=== PATIENT | male | born 1945 | race Caucasian/White ===

== ENCOUNTER → 2020-12-21 | Outpatient (CLI) | payer MEDICARE ==
--- NOTE | 2020-12-21 14:53 | XR ---
Abdomen HISTORY: [id number],[id number] CONSTIPATION,ABD PAIN Frontal view the abdomen submitted and 2 images Lung bases are clear. There is retained fecal debris throughout the distribution of the colon. No francis dent pneumoperitoneum or bowel obstruction. Calcifications in the pelvis likely represent phleboliths . Degenerative disc changes are noted in the visualized spine. Graph impression: Correlate for fecal stasis.
== END | disposition home or self-care (01) ==
LOC: RADXRYALE 13:44
PROVIDERS: ATTEND Physician Assistant
DX: K59.00 Constipation, unspecified (principal)
CPT/HCPCS: 74018

== ENCOUNTER → 2021-04-02 | Outpatient (CLI) | payer MEDICARE ==
--- NOTE | 2021-04-02 19:41 | P.STRESS ---
- Stress Test Note Stress Test Results/Findings: Exam Performed: EH stress test Exam Date: 04/02/21 Reason for Exam: HTN Height: 5 ft 8 in Weight: 107.3 kg Protocol: PATI Stage: 3 Duration of Exercise: 6:29 Resting Heart Rate: 71 Resting Blood Pressure: 157/82 Maximum Achieved Heart Rate: 153 Maximum Achieved Blood Pressure: 186/71 85% PMHR: 124 100% PMHR: 146 METS: 7.7 Technologist Comment: Stress Test Results/Findings: Baseline heart rate 71 beats a minute, Baseline blood pressure 157/82 mmHg Patient exercised on a Pati protocol for 6-1/2 minutes Peak heart rate 153 beats a minute, peak blood pressure 186/71 mmHg Baseline twelve-lead EKG shows sinus rhythm normal ST segments narrow QRS normal OH interval occasional PACs No ECG evidence for ischemia No arrhythmias with exercise Impression Average exercise capacity without any ECG evidence for ischemia PACs noted at baseline
--- NOTE | 2021-04-02 19:46 | ECHOF ---
Referral Reason:R53.83 Fatigue,E78.2 Mixed hyperlipidemia,I10HTN MEASUREMENTS -------- HEIGHT: 172.7 cm WEIGHT: 107.0 kg BP: 157/74 IVSd: 1.4 cm (0.6 - 1.1) LVIDd: 4.3 cm (3.9 - 5.3) LVPWd: 1.3 cm (0.6 - 1.1) EDV(Teich): 84 ml IVSs: 1.9 cm LVIDs: 2.7 cm LVPWs: 1.7 cm %IVS Thck: 44 % ESV(Teich): 26 ml EF(Teich): 69 % %FS: 38 % SV(Teich): 58 ml LA Diam: 3.4 cm (2.7 - 3.8) RVIDd: 3.5 cm (< 3.3) LALs A4C: 3.9 cm LAAs A4C: 13.8 cm LAESV A-L A4C: 42 ml LAESV MOD A4C: 40 ml LALs A2C: 5.7 cm LAAs A2C: 15.1 cm LAESV A-L A2C: 34 ml LAESV MOD A2C: 31 ml LAESV(A-L): 45 ml LAESV Index (A-L): 20.76 ml/m Ao Diam: 3.4 cm (2.0 - 3.7) AV Cusp: 2.4 cm (1.5 - 2.6) EPSS: 1.2 cm MV E Maverick: 0.65 m/s MV DecT: 327 ms MV Dec Straff[place]: 2.0 m/s MV A Maverick: 0.90 m/s MV E/A Ratio: 0.72 MV PHT: 95 ms AV Vmax: 1.47 m/s AV maxP.69 mmHg MV EF SLOPE: 18.81 mm/s (70 - 150) MV EXCURSION: 8.33 mm (> 18.000) FINDINGS -------- Sinus rhythm. This was a technically adequate study. The left ventricular size is normal. There is moderate concentric left ventricular hypertrophy. O verall left ventricular systolic function is normal with, an EF between 60 - 65 %. The right ventricle is mildly enlarged. Normal LA size by volume 22+/-6 ml/m2. The right atrium is normal in size. Interatrial and interventricular septum intact. The aortic valve is trileaflet, and appears structurally normal. No aortic stenosis or regurgitation. There is trace to mild mitral regurgitation. The tricuspid valve appears structurally normal. Unable to estimate RVSP due to inadequate TR jet s pectral doppler profile. Trace/mild (physiologic) pulmonic regurgitation. The aortic root size is normal. Normal inferior vena cava with normal inspiratory collapse consistent with estimated right atrial pre ssure of 5 mmHg. There is no pericardial effusion. CONCLUSIONS -------- 1. The left ventricular size is normal. 2. There is moderate concentric left ventricular hypertrophy. 3. Overall left ventricular systolic function is normal with, an EF between 60 - 65 %. 4. The right ventricle is mildly enlarged. 5. The aortic valve is trileaflet, and appears structurally normal. No aortic stenosis or regurgitati on. 6. There is trace to mild mitral regurgitation. 7. Trace/mild (physiologic) pulmonic regurgitation. 8. There is no pericardial effusion. [employer] STUDIES PROFESSOR: Rosa Redd RDCS
--- NOTE | 2021-04-04 10:10 | EST ---
Stress Test Results/Findings: Exam Performed: EH stress test Exam Date: 04/02/21 Reason for Exam: HTN Height: 5 ft 8 in Weight: 107.3 kg Protocol: PATI Stage: 3 Duration of Exercise: 6:29 Resting Heart Rate: 71 Resting Blood Pressure: 157/82 Maximum Achieved Heart Rate: 153 Maximum Achieved Blood Pressure: 186/71 85% PMHR: 124 100% PMHR: 146 METS: 7.7 Technologist Comment: Stress Test Results/Findings: Baseline heart rate 71 beats a minute, Baseline blood pressure 157/82 mmHg Patient exercised on a Pati protocol for 6-1/2 minutes Peak heart rate 153 beats a minute, peak blood pressure 186/71 mmHg Baseline twelve-lead EKG shows sinus rhythm normal ST segments narrow QRS normal NV interval occasional PACs No ECG evidence for ischemia No arrhythmias with exercise Impression Average exercise capacity without any ECG evidence for ischemia PACs noted at baseline MTDD
== END | disposition home or self-care (01) ==
LOC: RADECHMAIN 08:00
PROVIDERS: ATTEND Family Medicine
DX: I35.0 Nonrheumatic aortic (valve) stenosis (principal); I37.1 Nonrheumatic pulmonary valve insufficiency; I10 Essential (primary) hypertension
CPT/HCPCS: 93017; 93306

== ENCOUNTER → 2024-09-16 | Outpatient (CLI) | payer MEDICARE ==
[~2024-09-16] MED LIST: REGADENOSON 0.4 MG/5 ML SYRINGE IV PRN
--- NOTE | 2024-09-16 12:58 | NM ---
EXAMINATION TYPE: NM stress lexiscan cardiolite DATE OF EXAM: 09/16/2024 COMPARISON: NONE CLINICAL INDICATION: Male, 79 years old with history of R06.02 SOB I10 HTN E78.2 HYPERLIPIDEMIA; TECHNIQUE: After the intravenous administration of 10.05 mCi Tc 99m Sestamibi - Cardiolite resting S PECT images acquired 48 minutes post injection. The patient received 0.4mg Lexiscan, 25.4 mCi Tc 99m Sestamibi - Stress images obtained [address] injection FINDINGS: Review of stress and rest SPECT images demonstrates fixed perfusion defect along the mid to basal inf erior wall. There is some augmentation of the wall here on gated images. No distinct reversibility is seen. Gated analysis shows normal wall motion with an estimated left ventricular ejection fraction o f 56 %. TID is upper limits of normal at 1.12. IMPRESSION: Prominent diaphragmatic attenuation artifact. No scintigraphic evidence for reversible ischemia. [facility], Workstation: TE, 09/16/2024 12:56 PM
--- NOTE | 2024-09-16 14:43 | CA ---
Lexiscan Nuclear Stress Test Report Name: Michael Del Valle Exam Date: 09/16/2024 09:41 Exam Location: [facility] Ht (in): 68 Wt (lb): 264 BSA: 2.30 Ordering Phys: Garrick Eason DO Referring Phys: Mishel Jovel PAC Technologist: Ze Powers Age: 79 Gender: M : 1945 Procedure CPT: Indications: R06.02 SOB I10 HTN E78.2 HYPERLIPIIDEMIA ICD-10 Codes: Patient History: Medications: Meds past 24 hrs: Pretest Chest Pain: STRESS TEST Lexiscan Protocol Exercise Duration (min:sec): 02:[address] Depressions (mm): Angina Score: Mauro Score: Resting HR (bpm): 65 Peak HR (bpm): 84 Resting BP (mmHg): 124 / 65 Peak BP (mmHg): / 60 MPHR: 143 Target HR: 122 % MPHR: 59 METS: 1.0 Total Dose: Peak Dose: Atropine: Double Product: BP Response: Stress Termination: INFUSION COMPLETE Stress Symptoms: NO SYMPTOMS Stress Summary: ECG ANALYSIS Resting ECG: Stress ECG: CONCLUSIONS Diagnosis shortness of breath on exertion, history of hypertension and dyslipidemia No ECG evidence for ischemia or arrhythmia during Lexiscan infusion Nuclear portion will be reported separately Dr. Jerry Dyson MD (Electronically Signed) Final Date: 16 Sep 2024 14:42
== END | disposition home or self-care (01) ==
LOC: RADNMMAIN 08:04
PROVIDERS: ATTEND Family Medicine
DX: R06.02 Shortness of breath (principal); I10 Essential (primary) hypertension; E78.2 Mixed hyperlipidemia
CPT/HCPCS: 93017; 78452; A9500; J2785

== ENCOUNTER 2024-10-04 04:15 | Inpatient (IN) | payer MEDICARE ==
[2024-10-04 05:14] LABS: Basophils # (A) 0.02 10*3/uL (0.00-0.10); Basophils % (A) 0.1 %; HCT 34.1 % (39.6-50.0); HGB 10.9 g/dL (13.0-17.0); Lymphocytes # (A) 0.62 10*3/uL (0.90-5.00); Lymphocytes % (A) 4.6 %; MCH 23.9 pg (27.0-32.0); MCV 74.8 fL (80.0-97.0); Mean Platelet Volume 10.2 fL (9.5-12.2); Monocytes # (A) 0.31 10*3/uL (0.20-1.00); Monocytes % (A) 2.3 %; Neutrophils # (A) 12.52 10*3/uL (1.80-7.70); Neutrophils % (A) 92.6 %; Platelet Count 214 10*3/uL (140-440); RBC 4.56 10*6/uL (4.40-5.60); RDW 16.1 % (11.5-14.5); WBC 13.52 10*3/uL (4.50-10.00)
[2024-10-04 05:32] LABS: ALT 22 U/L (4-49); AST 28 U/L (17-59); African American GFR (CKD) >90 (>60 ml/min/1.73 sqM); Albumin 3.6 g/dL (3.5-5.0); Alkaline Phosphatase 87 U/L (38-126); Anion Gap 14 mmol/L; Blood Urea Nitrogen 24 mg/dL (9-20); Carbon Dioxide 18 mmol/L (22-30); Chloride 101 mmol/L (98-107); Glucose 172 mg/dL (74-99); Non-African American GFR(CKD) 83 (>60 ml/min/1.73 sqM); Potassium 4.2 mmol/L (3.5-5.1); Sodium 133 mmol/L (137-145); Total Bilirubin 0.5 mg/dL (0.2-1.3); Total Protein 6.4 g/dL (6.3-8.2)
[2024-10-04 05:40] LABS: NT-Pro-B-Type Natriuretic Pept 1960 pg/mL
[2024-10-04] MEDS: HEPARIN SOD,PORK IN 0.45% NACL 25,000 UNIT in 0.45% NACL 1 250ML.BAG IV SCH (05:44)
[2024-10-04 05:45] LABS: Partial Thromboplastin Time 35.5 sec (22.0-30.0); Prothrombin Time 10.6 sec (10.0-12.5)
--- NOTE | 2024-10-04 05:54 | ED ---
General Adult HPI - General Chief complaint: Chest Pain Stated complaint: NSTEMI Time Seen by Provider: 10/04/24 04:20 Source: patient, EMS Mode of arrival: EMS - History of Present Illness Initial comments: Patient is a 79-year-old gentleman PMH COPD presenting today , transferred from [facility], for NSTEMI and COPD exacerbation. Pt initially presented to [facility] for weakness and shortness of breath. Endorsed a cough productive of clear sputum and on arrival to [facility], was noted to be febrile with temp 100.7. Pt Stated he also noted to chest discomfort to the right side of his chest, "like when the muscle is tight" that has since reso lved. Pt is currently chest pain free. Pt currently denies additional complaints. Denies hemoptysis, abdominal pain, nausea, vomiting, diarrhea, lightheadedness, dizziness. - Related Data Home Medications Medication Instructions Recorded Confirmed Lovastatin [Mevacor] 20 mg PO HS 04/01/16 10/04/24 Omeprazole 40 mg PO DAILY 04/01/16 10/04/24 Albuterol Sulfate [Albuterol 2 puff PO RT-QID PRN 10/04/24 10/04/24 Sulfate Hfa] Aspirin 81 mg PO DAILY 10/04/24 10/04/24 Cholecalciferol [Vitamin D3 (25 25 mcg PO HS 10/04/24 10/04/24 Mcg = 1000 Iu)] Clotrimazole/Betameth Cream 1 applic TOPICAL BID 10/04/24 10/04/24 [Lotrisone] Famotidine [Pepcid] 40 mg PO HS 10/04/24 10/04/24 Ibuprofen [Motrin] 600 mg PO TID 10/04/24 10/04/24 Meloxicam [Mobic] 15 mg PO DAILY 10/04/24 10/04/24 Pramipexole [Mirapex] 0.25 mg PO HS 10/04/24 10/04/24 Tamsulosin HCl [Flomax] 0.4 mg PO BID 10/04/24 10/04/24 Umeclidinium Brm/Vilanterol Tr 1 puff INHALATION RT-DAILY 10/04/24 10/04/24 [Anoro Ellipta 62.5-25 Mcg INH] Previous Rx's Medication Instructions Recorded Ferrous Sulfate [Feosol] 325 mg PO BID 30 Days #60 tab 10/07/24 Furosemide [Lasix] 20 mg PO DAILY 30 Days #30 tab 10/07/24 Ipratropium-Albuterol Nebulize 3 ml INHALATION RT-Q2H PRN #90 each 10/07/24 [Duoneb 0.5 mg-3 mg/3 ml Soln] Metoprolol Tartrate [Lopressor] 25 mg PO DAILY 30 Days #30 tab 10/07/24 Sennosides [Senokot] 8.6 mg PO DAILY PRN #30 tablet 10/07/24 Spironolactone [Aldactone] 25 mg PO DAILY 30 Days #30 tab 10/07/24 lisinopriL [Zestril] 20 mg PO BID 30 Days #60 tab 10/07/24 predniSONE 10 mg PO DAILY 16 Days #40 tab 10/07/24 Allergies Allergy/AdvReac Type Severity Reaction Status Date / Time peanut Allergy Anaphylaxis Verified 10/04/24 07:57 morphine AdvReac Severe Sedation Verified 10/04/24 07:57 Review of Systems ROS Statement: Those systems with pertinent positive or pertinent negative responses have been documented in the HPI. ROS Other: All systems not noted in ROS Statement are negative. Past Medical History Past Medical History: COPD, Hyperlipidemia, Hypertension History of Any Multi-Drug Resistant Organisms: None Reported Past Surgical History: Orthopedic Surgery Smoking Status: Former smoker Past Alcohol Use History: None Reported General Exam - General Exam Comments Initial Comments: PE: CONSTITUTIONAL: No apparent distress, well-appearing though nontoxic SKIN: Warm, dry, no jaundice, hives or petechiae EYES: Pupils are equally round, extraocular movements intact without nystagmus, clear conjunctiva, non-icteric sclera HENT: Normocephalic, atraumatic, moist mucus membranes, oropharynx clear without exudates NECK: , Full range of motion, normal appearance PULMONARY: Wheezes in the bilateral lower lung suarez without rhonchi or rales, normal excursion no accessory muscle use or stridor CARDIOVASCULAR: Regular rate, rhythm, normal S1 and S2. No appreciated murmurs, rubs or gallops. Strong radial pulses with intact distal perfusion. No lower extremity edema GASTROINTESTINAL: Soft, active bowel sounds throughout, non-tender, non- distended, no palpable masses, no rebound or guarding. No hepatosplenomegaly MUSCULOSKELETAL: Extremities have no gross deformity, no edema, redness, or swelling. No calf swelling NEUROLOGIC:_a/o x 3, GCS 15, normal mentation and speech. Moves all extremities x 4 without motor or sensory deficit PSYCHIATRIC:_normal mood and affect, thought process is clear and linear Course Vital Signs 10/04/24 10/04/24 10/04/24 04:17 06:44 08:00 Temperature 98.3 F Pulse Rate 86 80 78 Respiratory 20 18 22 Rate Blood Pressure 110/59 97/61 108/68 O2 Sat by Pulse 96 91 L 93 L Oximetry 10/04/24 10/04/24 10/04/24 09:00 10:00 12:07 Temperature 98.0 F Pulse Rate 90 76 78 Respiratory 24 22 Rate Blood Pressure 118/76 105/63 O2 Sat by Pulse 95 93 L 97 Oximetry 10/04/24 10/04/24 10/04/24 12:18 14:00 15:40 Temperature Pulse Rate 82 83 80 Respiratory 22 Rate Blood Pressure 113/73 O2 Sat by Pulse 95 Oximetry 10/04/24 10/04/24 10/04/24 15:48 16:00 19:38 Temperature 98.7 F 98.7 F Pulse Rate 84 81 82 Respiratory 22 18 Rate Blood Pressure 113/59 115/52 O2 Sat by Pulse 95 95 Oximetry 10/04/24 10/04/24 10/04/24 19:58 20:08 21:49 Temperature 98.8 F Pulse Rate 82 85 75 Respiratory 16 Rate Blood Pressure 116/72 O2 Sat by Pulse 98 Oximetry EKG Findings - EKG Comments: EKG Findings:: Sinus rhythm, rate 84 beats minute intervals with acceptable limits, normal axis, no significant ST elevations or depressions, no arrhythmia Medical Decision Making - Medical Decision Making Was pt. sent in by a medical professional or institution (, PA, NEUROSURGICAL PHYSICIAN ASSISTANT, urgent care, hospital, or fpc...) When possible be specific @Yes transferred from [facility] Did you speak to anyone other than the patient for history (EMS, parent, family, police, friend...)? What history was obtained from this source @Yes spoke with physician from transferring facility, states transferring pt due to COPD exacerbation + NSTEMI Did you review nursing and triage notes (agree or disagree)? Why? @ -I reviewed nursing and triage notes Were old charts reviewed (outside hosp., previous admission, EMS record, old EKG, old radiological studies, urgent care reports/EKG's, fpc records)? Report findings @ -Medical records reviewed Chart from transferring facility, patient received a DuoNeb treatment, 1 gram of Rocephin, 60 mg of furosemide, heparin bolus and infusion, 125 mg Solu-Medrol 500 mg azithromycin Patient had presented to [facility] for feeling weak, tired and short of breath, on arrival her temp was 100.7. Differential Diagnosis (chest pain, altered mental status, abdominal pain women, abdominal pain men, vaginal bleeding, weakness, fever, dyspnea, syncope, headache, dizziness, GI bleed, back pain, seizure, CVA, palpatations, mental health, musculoskeletal)? @Differential Dyspnea: Coronary syndrome, arrhythmia, tamponade, asthma, COPD, pulmonary embolism, pneumonia, pneumothorax, pulmonary effusion, anaphylaxis, diabetic ketoacidosis, flailed chest, pulmonary contusion, diaphragmatic rupture, anemia, jonas romuscular, this is not meant to be an all-inclusive list. EKG interpreted by me (3pts min.). @ -As above X-rays interpreted by me (1pt min.). @ -None done CT interpreted by me (1pt min.). @ -None done U/S interpreted by me (1pt. min.). @ -None done What testing was considered but not performed or refused? (CT, X-rays, U/S, labs)? Why? @ -None What meds were considered but not given or refused? Why? @ -None Did you discuss the management of the patient with other professionals (professionals i.e. , PA, NEUROSURGICAL PHYSICIAN ASSISTANT, lab, RT, psych nurse, social worker school, divorce lawyer, teacher, svp chief marketing officer, watch caser)? Give summary @ -No Was smoking cessation discussed for >3mins.? @ -No Was critical care preformed (if so, how long)? Yes 35 minutes Were there social determinants of health that impacted care today? How? (Homelessness, low income, unemployed, alcoholism, drug addiction, transportation, low edu. Level, literacy, decrease access to med. care, retirement, rehab)? @ -No Was there de-escalation of care discussed even if they declined (Discuss DNR or withdrawal of care, Hospice)? @ -No What co-morbidities impacted this encounter? (DM, HTN, Smoking, COPD, CAD, Cancer, CVA, ARF, Chemo, Hep., AIDS, mental health diagnosis, sleep apnea, morbid obesity)? @COPD Was patient admitted / discharged? Hospital course, mention meds given and route, prescriptions, significant lab abnormalities, going to OR and other pertinent info. @Admission- This is a pleasant 79-year-old gentleman presenting transferred f [facility] where he had initially presented for right sided chest pain, shortness of breath. Was noted to have a fever, treated for COPD exacerbation and additionally noted to have an elevated troponin. Started on heparin and transferred here due to NSTEMI. On my assessment patient is well- appearing in no acute distress. Currently denies chest pain. Bilateral wheezes on pulmonary exam. He is currently resting comfortably on 3 L nasal cannula. I did turn O2 off during my discussion with the patient, his pulse ox did not drop below 94% during my evaluation. Ordered additional DuoNeb treatment, heparin, patient will be admitted for cardiology consultation. Pt agreeable w/ POC. Case discussed with Dr. Trent who kindly accepted patient for admission. Undiagnosed new problem with uncertain prognosis? @ -No Drug Therapy requiring intensive monitoring for toxicity (Heparin, Nitro, Insulin, Cardizem)? @ heparin Were any procedures done? @ -No Diagnosis/symptom? @COPD exacerbation, NSTEMI Acute, or Chronic, or Acute on Chronic? @acute Uncomplicated (without systemic symptoms) or Complicated (systemic symptoms)? @ complicated Side effects of treatment? @ -No Exacerbation, Progression, or Severe Exacerbation? yes-exacerbation Poses a threat to life or bodily function? How? (Chest pain, USA, ID, pneumonia, PE, COPD, DKA, ARF, appy, cholecystitis, CVA, Diverticulitis, Homicidal, Suicidal, threat to staff... and all critical care pts) @yes - Lab Data Result diagrams: 10/07/24 06:19 10/07/24 06:19 Lab Results 10/04/24 10/04/24 10/04/24 Range/Units 04:37 04:37 04:37 WBC 13.52 H (4.50-10.00) 10*3/uL RBC 4.56 (4.40-5.60) 10*6/uL Hgb 10.9 L (13.0-17.0) g/dL Hct 34.1 L (39.6-50.0) % MCV 74.8 L (80.0-97.0) fL MCH 23.9 L (27.0-32.0) pg MCHC 32.0 (32.0-37.0) g/dL Plt Count 214 (140-440) 10*3/uL MPV 10.2 (9.5-12.2) fL Immature Gran % (Auto) 0.4 % Neutrophils % 92.6 % Lymphocytes % 4.6 % Monocytes % 2.3 % Eosinophils % 0.0 % Basophils % 0.1 % Immature Gran # 0.05 H (0.00-0.04) 10*3/uL Neutrophils # 12.52 H (1.80-7.70) 10*3/uL Lymphocytes # 0.62 L (0.90-5.00) 10*3/uL Monocytes # 0.31 (0.20-1.00) 10*3/uL Eosinophils # 0.00 L (0.04-0.35) 10*3/uL Basophils # 0.02 (0.00-0.10) 10*3/uL PT 10.6 (10.0-12.5) sec INR 1.0 (<1.2) APTT 35.5 H (22.0-30.0) sec D-Dimer (<0.60) mg/L FEU Sodium 133 L (137-145) mmol/L Potassium 4.2 (3.5-5.1) mmol/L Chloride 101 (98-107) mmol/L Carbon Dioxide 18 L (22-30) mmol/L Anion Gap 14 mmol/L BUN 24 H (9-20) mg/dL Creatinine 0.89 (0.66-1.25) mg/dL Est GFR (CKD-EPI)AfAm >90 (>60 ml/min/1.73 sqM) Est GFR (CKD-EPI)NonAf 83 (>60 ml/min/1.73 sqM) Glucose 172 H (74-99) mg/dL Calcium 9.0 (8.4-10.2) mg/dL Total Bilirubin 0.5 (0.2-1.3) mg/dL AST 28 (17-59) U/L ALT 22 (4-49) U/L Alkaline Phosphatase 87 (38-126) U/L Troponin I (0.000-0.034) ng/mL NT-Pro-B Natriuret Pep 1960 pg/mL Total Protein 6.4 (6.3-8.2) g/dL Albumin 3.6 (3.5-5.0) g/dL 10/04/24 10/04/24 Range/Units 04:37 04:37 WBC (4.50-10.00) 10*3/uL RBC (4.40-5.60) 10*6/uL Hgb (13.0-17.0) g/dL Hct (39.6-50.0) % MCV (80.0-97.0) fL MCH (27.0-32.0) pg MCHC (32.0-37.0) g/dL Plt Count (140-440) 10*3/uL MPV (9.5-12.2) fL Immature Gran % (Auto) % Neutrophils % % Lymphocytes % % Monocytes % % Eosinophils % % Basophils % % Immature Gran # (0.00-0.04) 10*3/uL Neutrophils # (1.80-7.70) 10*3/uL Lymphocytes # (0.90-5.00) 10*3/uL Monocytes # (0.20-1.00) 10*3/uL Eosinophils # (0.04-0.35) 10*3/uL Basophils # (0.00-0.10) 10*3/uL PT (10.0-12.5) sec INR (<1.2) APTT (22.0-30.0) sec D-Dimer 1.40 H (<0.60) mg/L FEU Sodium (137-145) mmol/L Potassium (3.5-5.1) mmol/L Chloride (98-107) mmol/L Carbon Dioxide (22-30) mmol/L Anion Gap mmol/L BUN (9-20) mg/dL Creatinine (0.66-1.25) mg/dL Est GFR (CKD-EPI)AfAm (>60 ml/min/1.73 sqM) Est GFR (CKD-EPI)NonAf (>60 ml/min/1.73 sqM) Glucose (74-99) mg/dL Calcium (8.4-10.2) mg/dL Total Bilirubin (0.2-1.3) mg/dL AST (17-59) U/L ALT (4-49) U/L Alkaline Phosphatase (38-126) U/L Troponin I 0.208 H* (0.000-0.034) ng/mL NT-Pro-B Natriuret Pep pg/mL Total Protein (6.3-8.2) g/dL Albumin (3.5-5.0) g/dL Disposition Clinical Impression: Acute non-ST elevation myocardial infarction (NSTEMI), COPD exacerbation Disposition: ADMITTED IP TO THIS HOSP Condition: Stable
[2024-10-04] MEDS ORDERED: NALOXONE 0.4 MG/ML 1 ML VIAL IVP PRN (06:14)
[2024-10-04] MEDS ORDERED: IPRATROPIUM-ALBUTEROL 3 ML NEB INHALATION PRN (06:14)
[2024-10-04] MEDS ORDERED: ACETAMINOPHEN TAB 325 MG TAB PO PRN (06:14)
[2024-10-04] MEDS ORDERED: NITROGLYCERIN SL TABS 0.4 MG TAB SUBLINGUAL PRN ×2 (06:16→08:38)
[2024-10-04] MEDS ORDERED: HEPARIN SODIUM,PORCINE (1 ML) 2,500 UNIT in SODIUM CHLORIDE 0.9% 250 ML IRRIGATION PRN (07:00)
[2024-10-04] MEDS ORDERED: HEPARIN SODIUM,PORCINE 10,000 UNIT in SODIUM CHLORIDE 0.9% 1,000 ML IRRIGATION PRN (07:00)
[2024-10-04] MEDS ORDERED: ALPRAZolam 0.25 MG TAB PO PRN (08:38)
[2024-10-04] MEDS: SODIUM CHLORIDE 0.9% 1,000 ML in EMPTY BAG 1 BAG IV SCH (09:29)
[2024-10-04] MEDS: AZITHROMYCIN 500 MG TAB PO SCH (09:31)
[2024-10-04] MEDS: predniSONE 20 MG TAB PO SCH (09:32)
[2024-10-04] MEDS: ATORVASTATIN 40 MG TAB PO SCH (09:32)
[2024-10-04] MEDS: ASPIRIN 325 MG TAB PO STA (09:32)
[2024-10-04] MEDS: ATORVASTATIN 80 MG TAB PO STA (09:32)
[2024-10-04] MEDS ORDERED: ALBUTEROL NEBULIZED 2.5 MG/3 ML INHALATION PRN (10:01)
--- NOTE | 2024-10-04 10:07 | XR ---
EXAMINATION TYPE: XR chest 2V DATE OF EXAM: 10/04/2024 10:00 AM COMPARISON: None. CLINICAL INDICATION: Male, 79 years old with history of sob, TECHNIQUE: XR chest 2V view(s) obtained. FINDINGS: The heart size is normal. The pulmonary vasculature is somewhat prominent. Focal consolidation is not identified.. IMPRESSION: 1. Clinical consideration for volume overload. [facility], , 10/04/2024 10:04 AM
[2024-10-04] MEDS: FUROSEMIDE 10 MG/ML 4 ML VIAL IV STA (10:40)
[2024-10-04 10:53] LABS: Glucose,Whole Blood 198 mg/dL (70-110)
--- NOTE | 2024-10-04 11:00 | P.CRDCN ---
History of Present Illness History of present illness: HISTORY OF PRESENT ILLNESS: This is a 79-year-old male with a past medical history significant for COPD, hypertension, hyperlipidemia, and obesity. 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 We have been asked to see the patient in consultation for elevated troponins. Patient examined at the bedside. Patient initially presented to [facility] with a chief complaint of shortness of breath. Patient was found to have elevated troponins and was transferred to [facility] for further evaluation. The patient denies having any chest pain or pressure. He reports improvement in his shortness of breath. He remains on IV heparin. DIAGNOSTICS: - EKG reveals sinus mechanism with no signs of acute ischemia. - Chest xray clinical consideration for volume overload. - Laboratory data: WBC 13.52. Hemoglobin 10.9. Platelet count 214. D-dimer 1.40. Sodium 133. Potassium 4.2. BUN 24. Creatinine 0.89. Troponin 0.208. 0.196. proBNP 1960. - Current home cardiac medications include lisinopril 40 mg daily, aspirin 81 mg daily, amlodipine 5 mg at night, lovastatin 20 mg at night. - Most recent echocardiogram obtained in March 2021 revealing ejection fraction 60 to 65%, trace to mild MR, moderate concentric LVH - Patient underwent Lexiscan stress test in August 2024 which was negative for ischemia - Cardiac catheterization history: Patient denies REVIEW OF SYSTEMS: At the time of my exam: CONSTITUTIONAL: Denies fever or chills. HEENT: Denies blurred vision, vision changes, or eye pain. Denies hemoptysis CARDIOVASCULAR: Denies chest pain. Denies orthopnea. Denies PND. Denies palpitations RESPIRATORY: Denies shortness of breath. GASTROINTESTINAL: Denies abdominal pain. Denies nausea or vomiting. HEMATOLOGIC: Denies bleeding disorders. GENITOURINARY: Denies any blood in urine. SKIN: Denies pruitis. Denies rash. PHYSICAL EXAM: VITAL SIGNS: Reviewed. GENERAL: Well-developed in no acute distress. HEENT: Head is normocephalic. Pupils are equal, round. Sclerae anicteric. Mucous membranes of the mouth are moist. Neck supple. No JVD or thyromegaly LUNGS: Respirations even and unlabored. Lungs with decreased air change bilaterally HEART: Regular rate and rhythm. S1 and S2 heard. ABDOMEN: Soft. Nondistended. Nontender. EXTREMITIES: Normal range of motion. No clubbing or cyanosis. Peripheral pulses intact. No lower extremity edema NEUROLOGIC: Awake and alert. Oriented x 3. ASSESSMENT: Shortness of breath NSTEMI Acute COPD exacerbation Hypertension Hyperlipidemia Morbid obesity: BMI 40.3 Former nicotine dependence PLAN: Obtain 2D echo to assess cardiac structure and function Continue IV heparin Resume home cardiac medications Check hemoglobin A1c and lipid panel Patient to undergo cardiac catheterization today with Dr. Bhardwaj Further recommendations pending patient course Nurse practitioner note has been reviewed by physician. Signing provider agrees with the documented findings, assessment, and plan of care documented by CHANGE [employer]OTH ATTENDANT as a scribe. Past Medical History Past Medical History: COPD, Hyperlipidemia, Hypertension History of Any Multi-Drug Resistant Organisms: None Reported Past Surgical History: Orthopedic Surgery Smoking Status: Former smoker Past Alcohol Use History: None Reported Medications and Allergies Home Medications Medication Instructions Recorded Confirmed Type Lovastatin [Mevacor] 20 mg PO HS 04/01/16 10/04/24 History Omeprazole 40 mg PO DAILY 04/01/16 10/04/24 History Albuterol Sulfate [Albuterol 2 puff PO RT-QID PRN 10/04/24 10/04/24 History Sulfate Hfa] Aspirin 81 mg PO DAILY 10/04/24 10/04/24 History Chlorhexidine Gluconate [Peridex] 15 ml PO BID 10/04/24 10/04/24 History Cholecalciferol [Vitamin D3 (25 25 mcg PO HS 10/04/24 10/04/24 History Mcg = 1000 Iu)] Clotrimazole/Betameth Cream 1 applic TOPICAL BID 10/04/24 10/04/24 History [Lotrisone] Famotidine [Pepcid] 40 mg PO HS 10/04/24 10/04/24 History Ibuprofen [Motrin] 600 mg PO TID 10/04/24 10/04/24 History Meloxicam [Mobic] 15 mg PO DAILY 10/04/24 10/04/24 History Pramipexole [Mirapex] 0.25 mg PO HS 10/04/24 10/04/24 History Tamsulosin HCl [Flomax] 0.4 mg PO BID 10/04/24 10/04/24 History Umeclidinium Brm/Vilanterol Tr 1 puff INHALATION RT-DAILY 10/04/24 10/04/24 History [Anoro Ellipta 62.5-25 Mcg INH] amLODIPine [Norvasc] 5 mg PO HS 10/04/24 10/04/24 History lisinopriL [Lisinopril] 40 mg PO DAILY 10/04/24 10/04/24 History Allergies Allergy/AdvReac Type Severity Reaction Status Date / Time peanut Allergy Anaphylaxis Verified 10/04/24 07:57 morphine AdvReac Severe Sedation Verified 10/04/24 07:57 Physical Exam Vitals: Vital Signs Temp Pulse Resp BP Pulse Ox 10/04/24 06:44 80 18 97/61 91 L 10/04/24 04:17 98.3 F 86 20 110/59 96 Intake and Output 10/03/24 10/04/24 10/04/24 22:59 06:59 14:59 Other: Weight 120.202 kg Results 10/04/24 04:37 10/04/24 04:37 Cardiac Enzymes 10/04/24 10/04/24 10/04/24 Range/Units 04:37 04:37 07:18 AST 28 (17-59) U/L Troponin I 0.208 H* 0.196 H* (0.000-0.034) ng/mL Coagulation 10/04/24 Range/Units 04:37 PT 10.6 (10.0-12.5) sec APTT 35.5 H (22.0-30.0) sec CBC 10/04/24 Range/Units 04:37 WBC 13.52 H (4.50-10.00) 10*3/uL RBC 4.56 (4.40-5.60) 10*6/uL Hgb 10.9 L (13.0-17.0) g/dL Hct 34.1 L (39.6-50.0) % Plt Count 214 (140-440) 10*3/uL Comprehensive Metabolic Panel 10/04/24 Range/Units 04:37 Sodium 133 L (137-145) mmol/L Potassium 4.2 (3.5-5.1) mmol/L Chloride 101 (98-107) mmol/L Carbon Dioxide 18 L (22-30) mmol/L BUN 24 H (9-20) mg/dL Creatinine 0.89 (0.66-1.25) mg/dL Glucose 172 H (74-99) mg/dL Calcium 9.0 (8.4-10.2) mg/dL AST 28 (17-59) U/L ALT 22 (4-49) U/L Alkaline Phosphatase 87 (38-126) U/L Total Protein 6.4 (6.3-8.2) g/dL Albumin 3.6 (3.5-5.0) g/dL Current Medications Generic Name Dose Route Start Last Admin Trade Name Freq PRN Reason Stop Dose Admin Acetaminophen 650 mg 10/04/24 06:14 Acetaminophen Tab 325 Mg Tab PO Q6HR PRN Mild Pain or Fever > 100.5 Albuterol Sulfate 2.5 mg 10/04/24 10:01 Albuterol Nebulized 2.5 Mg/3 Ml INHALATION RT-QID PRN Shortness Of Breath Albuterol/Ipratropium 3 ml 10/04/24 08:00 Ipratropium-Albuterol 3 Ml Neb INHALATION RT-QID EMILY Albuterol/Ipratropium 3 ml 10/04/24 06:14 Ipratropium-Albuterol 3 Ml Neb INHALATION RT-Q2H PRN Shortness Of Breath Or Wheezing Alprazolam 0.25 mg 10/04/24 08:38 Alprazolam 0.25 Mg Tab PO Q6HR PRN Mild Anxiety Alprazolam 0.5 mg 10/04/24 08:38 Alprazolam 0.5 Mg Tab PO Q6HR PRN Moderate Anxiety Aspirin 81 mg 10/05/24 09:00 Aspirin 81 Mg PO DAILY [facility] Atorvastatin Calcium 40 mg 10/04/24 09:00 10/04/24 09:32 Atorvastatin 40 Mg Tab PO Not Given DAILY [facility] Formoterol Fumarate 20 mcg 10/05/24 08:00 Formoterol Fumarate 20 Mcg/2 Ml Nebu INHALATION RT-BID [facility] Heparin Sodium (Porcine) 0 unit 10/04/24 05:21 Heparin Sodium 1,000 Un/Ml (10ml Vl) IV PER PROTOCOL PRN Low PTT Protocol Heparin Sodium/Sodium Chloride 250 mls @ 9.977 mls/hr 10/04/24 05:30 10/04/24 05:44 25,000 unit/ Sodium Chloride IV 8.3 units/kg/hr .Q24H EMILY 9.977 mls/hr Administration Protocol 8.3 UNITS/KG/HR Heparin Sodium (Porcine) 10, 1,001 mls @ 999 mls/hr 10/04/24 07:00 000 unit/ Sodium Chloride IRRIGATION 10/05/24 06:59 ONCE PRN INTRA-OP Heparin Sodium (Porcine) 2,500 250.5 mls @ 250 mls/hr 10/04/24 07:00 unit/ Sodium Chloride IRRIGATION 10/05/24 06:59 ONCE PRN INTRA-OP Sodium Chloride 1,000 ml/ IV 1,000 mls @ 120.202 mls/hr 10/04/24 08:45 10/04/24 09:29 Solution IV 120.202 mls/hr .Q8H20M EMILY Administration 1 ML/KG/HR Lisinopril 40 mg 10/05/24 09:00 Lisinopril 20 Mg Tab PO DAILY EMILY Naloxone HCl 0.2 mg 10/04/24 06:14 Naloxone 0.4 Mg/Ml 1 Ml Vial IVP Q2M PRN Opioid Reversal Nitroglycerin 0.4 mg 10/04/24 08:38 Nitroglycerin Sl Tabs 0.4 Mg Tab SUBLINGUAL Q5M PRN Chest Pain Pantoprazole Sodium 40 mg 10/05/24 09:00 Pantoprazole 40 Mg Tablet PO DAILY EMILY Pramipexole Dihydrochloride 0.25 mg 10/04/24 21:00 Pramipexole 0.125 Mg Tab PO HS EMILY Prednisone 40 mg 10/04/24 09:00 10/04/24 09:32 Prednisone 20 Mg Tab PO 10/08/24 09:01 40 mg DAILY EMILY Administration Tamsulosin HCl 0.4 mg 10/04/24 21:00 Tamsulosin 0.4 Mg Cap.Er.24h PO BID EMILY Intake and Output 10/03/24 10/04/24 10/04/24 22:59 06:59 14:59 Other: Weight 120.202 kg 10/04/24 04:37 10/04/24 04:37
--- NOTE | 2024-10-04 11:43 | CA ---
Transthoracic Echo Report Name: Michael Del Valle Age: 79 Gender: M : 1945 Exam Date: 10/04/2024 10:20 Exam Location: [place] [facility] Ht (in): 68 Wt (lb): 265 Ordering Physician: Gely Turner Attending/Referring Phys: [id number], Yue Game Advisor Rosa Redd RDCS Procedure CPT: Indications: elevated trops, sob Cardiac Hx: COPD Technical Quality: Fair Contrast 1: Total Dose (mL): Contrast 2: Total Dose (mL): MEASUREMENTS (Male / Female) Normal Values 2D ECHO LV Diastolic Diameter PLAX 4.9 cm 4.2 - 5.9 / 3.9 - 5.3 cm LV Systolic Diameter PLAX 3.6 cm IVS Diastolic Thickness 1.4 cm 0.6 - 1.0 / 0.6 - 0.9 cm LVPW Diastolic Thickness 1.4 cm 0.6 - 1.0 / 0.6 - 0.9 cm LV Relative Wall Thickness 0.6 RV Internal Dim ED PLAX 4.3 cm LA Systolic Diameter LX 4.2 cm 3.0 - 4.0 / 2.7 - 3.8 cm LV Diastolic Volume MOD 4C 107.0 cm??? LV Systolic Volume MOD 4C 51.5 cm??? LV Ejection Fraction MOD 4C 51.9 % LV Cardiac Index MOD 4C 1671.3 cm???/min???m??? LV Diastolic Length 4C 8.7 cm LV Systolic Length 4C 7.7 cm LV Diastolic Volume MOD 2C 82.8 cm??? LV Systolic Volume MOD 2C 30.9 cm??? LV Ejection Fraction MOD 2C 62.7 % LV Cardiac Index MOD 2C 1565.2 cm???/min???m??? LV Diastolic Length 2C 8.4 cm LV Systolic Length 2C 7.1 cm LA Volume 63.4 cm??? 18 - 58 / 22 - 52 cm??? LA Volume Index 25.8 cm???/m??? 16 - 28 cm???/m??? M-MODE Aortic Root Diameter MM 3.7 cm AV Cusp Separation MM 2.6 cm DOPPLER AV Peak Velocity 145.5 cm/s AV Peak Gradient 8.5 mmHg TR Peak Velocity 280.2 cm/s TR Peak Gradient 31.4 mmHg Right Ventricular Systolic Press 35.9 mmHg FINDINGS Left Ventricle Left ventricular ejection fraction is estimated at 50-55 %. Left ventricular cavity size normal. Moderate concentric left ventricular hypertrophy. No obvious regional wall motion abnormalities. Right Ventricle Right ventricular dilatation. Mild pulmonary hypertension. Right Atrium No right atrial thrombus or mass seen. No right atrial thrombus or mass seen. Left Atrium Mildly increased left atrial diameter. Mildly increased left atrial volume. Mildly increased left atrial area. No left atrial thrombus or mass present. Mitral Valve Structurally normal mitral valve. Mild to moderate mitral regurgitation. Aortic Valve Trileaflet aortic valve. Thickened aortic valve without stenosis.aortic valve sclerosis. Tricuspid Valve Structurally normal tricuspid valve. Mild tricuspid regurgitation. Pulmonic Valve Pulmonic valve not well visualized. Trace pulmonic regurgitation. Pericardium No pericardial effusion.echo free space anterior to the right ventricle likely represents a fat pad. Aorta Normal size aortic root and proximal ascending aorta. CONCLUSIONS 1. Left ventricular systolic function borderline normal with no segmental wall motion abnormality 2. Mild to moderate mitral with mild tricuspid regurgitation and mild pulmonary hypertension. Previewed by: Dr. Jake Sierra MD (Electronically Signed) Final Date: 04 October 2024 11:42
[2024-10-04] MEDS: IPRATROPIUM-ALBUTEROL 3 ML NEB INHALATION SCH (11:56)
[2024-10-04] MEDS: HEPARIN SODIUM 1,000 UN/ML (10ML VL) IV PRN (13:19)
[2024-10-04] MEDS ORDERED: DEXTROSE 50% SYRINGE 50 ML IVP PRN ×2 (14:51)
--- NOTE | 2024-10-04 14:52 | P.HPIM ---
History of Present Illness H&P Date: 10/04/24 Chief Complaint: shortness of breath Patient is a 79 year old male with past medical history of COPD, hypertension, hyperlipidemia presented to the ED with shortness of breath. Patient initially went to the hospital in [place] for fever and shortness of breath. Respirat ory panel was negative. His troponin was high which is why he was sent to the ED here at [facility]. Patient mentioned that he recently moved here from [place] in August 2024. He was then shoveling [facility] which is when his symptoms started. At the time of this interview the patient does not complain of shortness of breath. He also experienced chest pressure, nonradiating. Associated with that he also had nausea and profuse sweating. He reports being a former smoker. Patient denies using oxygen at home. Denies fever, chills, palpitations, abdominal pain, vomiting, hematuria, dysuria, hematochezia, melena, headache, slurred speech, numbness, tingling, dizziness, lightheadedness, blurred vision, double vision. ED documentation reviewed. In the ED patient was treated with aspirin 325 mg, atorvastatin 80 mg, azithromycin 5 mg, DuoNeb, 0.9 normal saline, heparin drip. Vitals on admission T 98.3 F, [place] 86 bpm, RR 20, BP 110/59, SpO2 96% on 4 L oxygen via nasal cannula Most recent vital T 98 F, [place] 82 bpm, RR 22, BP 105/63, SpO2 97% on 1 L oxygen via nasal cannula EKG independently interpreted as sinus rhythm, rate 84 bpm, QTc 414 ms Chest x-ray shows clinical consideration for volume overload Echocardiogram shows EF 50-55 percent, left ventricular systolic function borderline normal with no segmental wall motion abnormality, mild to moderate mitral with mild tricuspid regurgitation and mild pulmonary hypertension. Labs on admission show WBC 13.52, hemoglobin 10.9, MCV 74.8, APTT 35.5, D-dimer 1.4, sodium 133, BUN 24, glucose 172 Troponin I 0.208, 0.196, 0.138 NT proBNP 1958 Review of systems: Pertinent positives and negatives as discussed in HPI, a complete review of systems was performed and all other systems are negative. Physical examination: Vital signs reviewed General: nontoxic, no distress, appears at stated age, on 2L oxygen via nasal cannula Derm: warm, dry, intact Head: atraumatic, normocephalic, symmetric Eyes: EOMI, anicteric sclera Mouth: no lip lesion, mucus membranes moist Cardiovascular: S1 S2 reg, no murmur Lungs: CTA bilateral, no rhonchi, no rales, no accessory muscle use Abdominal: soft, non-tender to palpation Extremities: No cyanosis, clubbing, or pedal edema. Neuro: Alert, Oriented, Gross neurological examination did not reveal any focal deficits. Psych: well appearing, appropriate affect Assessment/Plan: Patient is a 79 year old male with past medical history of COPD, hypertension, hyperlipidemia presented to the ED with shortness of breath. Patient initially went to the hospital in [place] for fever and shortness of breath and chest pressure. Patient admitted to internal medicine service. Active: #. Type I NSTEMI #. Pulmonary edema EKG independently interpreted as sinus rhythm, rate 84 bpm, QTc 414 ms Chest x-ray shows clinical consideration for volume overload Troponin I 0.208, 0.196, 0.138 NT proBNP 1958 Echocardiogram shows EF 50-55%, left ventricular systolic function borderline normal with no segmental wall motion abnormality, mild to moderate mitral with mild tricuspid regurgitation and mild pulmonary hypertension Started on heparin drip Received aspirin 325 mg p.o. once in the ED Started on aspirin 81 mg p.o. daily, atorvastatin 40 mg p.o. daily Lasix 40 mg IV once Continue nitroglycerin 0.4 mg sublingual every 4 hours as needed Obtain A1c, TSH and lipid panel Continue telemetry monitoring Cardiology consulted, recommend cardiac catheterization today #. Acute hypoxic respiratory failure #. COPD exacerbation #. Leukocytosis Chest x-ray shows clinical consideration for volume overload Received Azithromycin 500 mg in the ED Start [employer] pharmacist 12 mg twice daily, albuterol 2.5 mg 4 times daily as needed Start prednisone 40 mg p.o. daily for 5 days Obtain blood culture, sputum culture and Legionella antigen #. HAGMA with NAGMA Delta-delta ratio <1 BUN elevated Patient received fluids in the ED Monitor BMP #. D-dimer elevation D-dimer 1.4 Low risk for PE Obtain records from another facility Monitor vital signs #. Microcytic anemia Obtain iron studies, retic count, Transfuse for Hb<7 Monitor CBC #. Mild Hyponatremia Monitor BMP Chronic: #. Hypertension #. Hyperlipidemia #. GERD #. Restless leg syndrome #. BPH Continue lisinopril 40 mg p.o. daily, atorvastatin 40 mg p.o. daily, pantoprazole 40 mg p.o. daily, pramipexole 0.25 mg p.o. at bedtime, Tamsulosin 0.4 mg pO daily F: None E: Replete as required N: NPO A: Ambulatory DVT prophylaxis: Heparin drip GI prophylaxis: Protonix 40 mg The patient is admitted with an anticipated more than 2 midnight stay for evaluation of shortness of breath CODE STATUS: FULL CODE Discussed with: Patient Anticipated discharge place: Pending clinical course Dictation was produced using [employer] dictation software. please excuse any gramma tical, word or spelling errors. Miranda Damian MD PGY-1 IM I have seen and evaluated the patient today. Discussed with the resident and agree with the residents finding and plan as documented in the resident's note. Changes highlighted in blue font. Past Medical History Past Medical History: COPD, Hyperlipidemia, Hypertension History of Any Multi-Drug Resistant Organisms: None Reported Past Surgical History: Orthopedic Surgery Smoking Status: Former smoker Past Alcohol Use History: None Reported Medications and Allergies Home Medications Medication Instructions Recorded Confirmed Type Lovastatin [Mevacor] 20 mg PO HS 04/01/16 10/04/24 History Omeprazole 40 mg PO DAILY 04/01/16 10/04/24 History Albuterol Sulfate [Albuterol 2 puff PO RT-QID PRN 10/04/24 10/04/24 History Sulfate Hfa] Aspirin 81 mg PO DAILY 10/04/24 10/04/24 History Chlorhexidine Gluconate [Peridex] 15 ml PO BID 10/04/24 10/04/24 History Cholecalciferol [Vitamin D3 (25 25 mcg PO HS 10/04/24 10/04/24 History Mcg = 1000 Iu)] Clotrimazole/Betameth Cream 1 applic TOPICAL BID 10/04/24 10/04/24 History [Lotrisone] Famotidine [Pepcid] 40 mg PO HS 10/04/24 10/04/24 History Ibuprofen [Motrin] 600 mg PO TID 10/04/24 10/04/24 History Meloxicam [Mobic] 15 mg PO DAILY 10/04/24 10/04/24 History Pramipexole [Mirapex] 0.25 mg PO HS 10/04/24 10/04/24 History Tamsulosin HCl [Flomax] 0.4 mg PO BID 10/04/24 10/04/24 History Umeclidinium Brm/Vilanterol Tr 1 puff INHALATION RT-DAILY 10/04/24 10/04/24 History [Anoro Ellipta 62.5-25 Mcg INH] amLODIPine [Norvasc] 5 mg PO HS 10/04/24 10/04/24 History lisinopriL [Lisinopril] 40 mg PO DAILY 10/04/24 10/04/24 History Allergies Allergy/AdvReac Type Severity Reaction Status Date / Time peanut Allergy Anaphylaxis Verified 10/04/24 07:57 morphine AdvReac Severe Sedation Verified 10/04/24 07:57 Physical Exam Vitals: Vital Signs Temp Pulse Resp BP Pulse Ox 10/04/24 12:18 82 10/04/24 12:07 78 97 10/04/24 10:00 76 22 105/63 93 L 10/04/24 09:00 98.0 F 90 24 118/76 95 10/04/24 08:00 78 22 108/68 93 L 10/04/24 06:44 80 18 97/61 91 L 10/04/24 04:17 98.3 F 86 20 110/59 96 Intake and Output 10/03/24 10/04/24 10/04/24 22:59 06:59 14:59 Intake Total 75.326 Balance 75.326 Intake: Intake, IV Titration 75.326 Amount Heparin Sod,Pork in 0.45% 75.326 NaCl 25,000 unit In 0.45 % NaCl 1 250ml.bag @ 8.3 UNITS/KG/HR 9.977 mls/hr IV .Q24H [facility] Rx#: [id number] Other: Weight 120.202 kg Results CBC & Chem 7: 10/04/24 04:37 10/04/24 04:37 Labs: Abnormal Lab Results - Last 24 Hours (Table) 10/04/24 10/04/24 10/04/24 Range/Units 04:37 04:37 04:37 WBC 13.52 H (4.50-10.00) 10*3/uL Hgb 10.9 L (13.0-17.0) g/dL Hct 34.1 L (39.6-50.0) % MCV 74.8 L (80.0-97.0) fL MCH 23.9 L (27.0-32.0) pg Immature Gran # 0.05 H (0.00-0.04) 10*3/uL Neutrophils # 12.52 H (1.80-7.70) 10*3/uL Lymphocytes # 0.62 L (0.90-5.00) 10*3/uL Eosinophils # 0.00 L (0.04-0.35) 10*3/uL APTT 35.5 H (22.0-30.0) sec D-Dimer (<0.60) mg/L FEU Sodium 133 L (137-145) mmol/L Carbon Dioxide 18 L (22-30) mmol/L BUN 24 H (9-20) mg/dL Glucose 172 H (74-99) mg/dL POC Glucose (mg/dL) (70-110) mg/dL Troponin I (0.000-0.034) ng/mL 10/04/24 10/04/24 10/04/24 Range/Units 04:37 04:37 07:18 WBC (4.50-10.00) 10*3/uL Hgb (13.0-17.0) g/dL Hct (39.6-50.0) % MCV (80.0-97.0) fL MCH (27.0-32.0) pg Immature Gran # (0.00-0.04) 10*3/uL Neutrophils # (1.80-7.70) 10*3/uL Lymphocytes # (0.90-5.00) 10*3/uL Eosinophils # (0.04-0.35) 10*3/uL APTT (22.0-30.0) sec D-Dimer 1.40 H (<0.60) mg/L FEU Sodium (137-145) mmol/L Carbon Dioxide (22-30) mmol/L BUN (9-20) mg/dL Glucose (74-99) mg/dL POC Glucose (mg/dL) (70-110) mg/dL Troponin I 0.208 H* 0.196 H* (0.000-0.034) ng/mL 10/04/24 10/04/24 10/04/24 Range/Units 10:37 10:37 10:52 WBC (4.50-10.00) 10*3/uL Hgb (13.0-17.0) g/dL Hct (39.6-50.0) % MCV (80.0-97.0) fL MCH (27.0-32.0) pg Immature Gran # (0.00-0.04) 10*3/uL Neutrophils # (1.80-7.70) 10*3/uL Lymphocytes # (0.90-5.00) 10*3/uL Eosinophils # (0.04-0.35) 10*3/uL APTT 32.1 H (22.0-30.0) sec D-Dimer (<0.60) mg/L FEU Sodium (137-145) mmol/L Carbon Dioxide (22-30) mmol/L BUN (9-20) mg/dL Glucose (74-99) mg/dL POC Glucose (mg/dL) 198 H (70-110) mg/dL Troponin I 0.138 H* (0.000-0.034) ng/mL
[2024-10-04 15:04] LABS: Reticulocyte % 0.87 % (0.10-1.80)
[2024-10-04 15:43] LABS: % Iron Saturation 3.47 (15.00-50.00)
[2024-10-04 16:44] LABS: Glucose,Whole Blood 182 mg/dL (70-110)
[2024-10-04] MEDS: INSULIN LISPRO (HumaLOG) 100 UNIT/ML 10 mL VL SQ SCH (17:18)
[2024-10-04] MEDS: SODIUM CHLORIDE 0.9% 1,000 ML IV SCH (19:36)
[2024-10-04] MEDS: TAMSULOSIN 0.4 MG CAP.ER.24H PO SCH (20:14)
[2024-10-04] MEDS: PRAMIPEXOLE 0.125 MG TAB PO SCH (20:14)
[2024-10-04] MEDS: CALCIUM CARBONATE 500 MG CHEWABLE PO PRN (22:42)
[2024-10-05 03:00] LABS: HCT 30.5 % (39.6-50.0); HGB 9.5 g/dL (13.0-17.0); MCH 23.5 pg (27.0-32.0); MCHC 31.1 g/dL (32.0-37.0); MCV 75.3 fL (80.0-97.0); Mean Platelet Volume 9.4 fL (9.5-12.2); Platelet Count 230 10*3/uL (140-440); RBC 4.05 10*6/uL (4.40-5.60); RDW 16.3 % (11.5-14.5); WBC 15.99 10*3/uL (4.50-10.00)
[2024-10-05 03:23] LABS: INR 0.9 (<1.2); Partial Thromboplastin Time 39.9 sec (22.0-30.0); Prothrombin Time 10.4 sec (10.0-12.5)
[2024-10-05 03:33] LABS: African American GFR (CKD) 88 (>60 ml/min/1.73 sqM); Anion Gap 9 mmol/L; Blood Urea Nitrogen 30 mg/dL (9-20); Calcium 9.5 mg/dL (8.4-10.2); Carbon Dioxide 24 mmol/L (22-30); Chloride 102 mmol/L (98-107); Glucose 142 mg/dL (74-99); Non-African American GFR(CKD) 77 (>60 ml/min/1.73 sqM); Potassium 4.2 mmol/L (3.5-5.1); Sodium 135 mmol/L (137-145)
[2024-10-05 05:05] LABS: T4, Free (Free Thyroxine) 1.68 ng/dL (0.78-2.19)
[2024-10-05] MEDS: ASPIRIN 81 MG PO SCH (05:52)
[2024-10-05] MEDS: lisinopriL 20 MG TAB PO SCH ×2 (05:53→21:11)
[2024-10-05] MEDS: PANTOPRAZOLE 40 MG TABLET PO SCH (05:53)
[2024-10-05 05:56] LABS: Glucose,Whole Blood 156 mg/dL (70-110)
[2024-10-05] MEDS: FORMOTEROL FUMARATE 20 MCG/2 ML NEBU INHALATION SCH (07:59)
[2024-10-05] MEDS ORDERED: TIOTROPIUM 2.5 MCG INHALER INHALATION SCH (08:00)
[2024-10-05 08:45] LABS: Chol/HDL Ratio 2.16 Ratio; LDL Cholesterol,Calculated 47.7 mg/dL (0.0-131.0); VLDL Calculation 12.98 mg/dL (5.00-40.00)
[2024-10-05] MEDS: ATORVASTATIN 80 MG TAB PO STA (08:58)
[2024-10-05] MEDS: ASPIRIN 325 MG TAB PO STA (09:00)
[2024-10-05] MEDS: ASPIRIN 81 MG PO STA (09:29)
--- NOTE | 2024-10-05 10:49 | P.PN ---
Subjective Progress Note Date: 10/05/24 Principal diagnosis: Hospital course: Patient is a 79 year old male with past medical history of COPD, hypertension, hyperlipidemia presented to the ED with shortness of breath. Patient initially went to the hospital in [place] for fever and shortness of breath. Respiratory panel was negative. His troponin was high which is why he was sent to the ED here at [facility]. Patient mentioned that he recently moved here from [place] in August 2024. He was then shoveling rock which is when his symptoms started. At the time of this interview the patient does not complain of shortness of breath. He also experienced chest pressure, nonradiating. Associated with that he also had nausea and profuse sweating. He reports being a former smoker. Patient denies using oxygen at home. Denies fever, chills, palpitations, abdominal pain, vomiting, hematuria, dysuria, hematochezia, melena, headache, slurred speech, numbness, tingling, dizziness, lightheadedness, blurred vision, double vision. ED documentation reviewed. In the ED patient was treated with aspirin 325 mg, atorvastatin 80 mg, azithromycin 5 mg, DuoNeb, 0.9 normal saline, heparin drip. 10/05/24: Patient is seen and examined at bedside today. Denies any new complaints today. Review of systems: Pertinent positives and negatives as discussed in HPI, a complete review of systems was performed and all other systems are negative. Vitals: Signs Reviewed, SpO2 92% on 2 L oxygen via nasal cannula Physical examination: General: nontoxic, no distress, appears at stated age, on 2L oxygen via nasal cannula Derm: warm, dry, intact Head: atraumatic, normocephalic, symmetric Eyes: EOMI, anicteric sclera Mouth: no lip lesion, mucus membranes moist Cardiovascular: S1 S2 reg, no murmur Lungs: CTA bilateral, no rhonchi, no rales, no accessory muscle use Abdominal: soft, non-tender to palpation Extremities: No cyanosis, clubbing, or pedal edema. Neuro: Alert, Oriented, Gross neurological examination did not reveal any focal deficits. Psych: well appearing, appropriate affect Data Reviewed Today: Labs: WBC 15.99, hemoglobin 9.5, APTT 39.9, sodium 135, BUN 30, glucose 156, A1c 6.6, triglycerides 64.9, cholesterol 113, LDL 47.7, VLDL 20.98, HDL 52.3, TSH 0.046, free T41.68,Iron 13, TIBC 375, percent saturation 3.47, transferrin 268, ferritin 57,Reticulocyte count 0.87 Legionella antigen is negative Imaging: EKG independently interpreted as sinus rhythm, rate 81 bpm, QTc 442 ms Assessment/Plan: Patient is a 79 year old male with past medical history of COPD, hypertension, hyperlipidemia presented to the ED with shortness of breath. Patient initially went to the hospital in [place] for fever and shortness of breath and chest pressure. Patient admitted to internal medicine service. Active: #. Type I NSTEMI #. Pulmonary edema EKG independently interpreted as sinus rhythm, rate 84 bpm, QTc 414 ms Chest x-ray shows clinical consideration for volume overload Troponin I 0.208, 0.196, 0.138 NT proBNP 1958 Echocardiogram shows EF 50-55%, left ventricular systolic function borderline normal with no segmental wall motion abnormality, mild to moderate mitral with mild tricuspid regurgitation and mild pulmonary hypertension A1c 6.6, triglycerides 64.9, cholesterol 113, LDL 47.7, VLDL 20.98, HDL 52.3, TSH 0.046, free T41.68 Heparin drip Received aspirin 325 mg p.o. once in the ED Started on aspirin 81 mg p.o. daily, atorvastatin 40 mg p.o. daily Lasix 40 mg IV once Continue nitroglycerin 0.4 mg sublingual every 4 hours as needed Continue telemetry monitoring Cardiology consulted, recommend cardiac catheterization today #. Acute hypoxic respiratory failure #. COPD exacerbation #. Leukocytosis Chest x-ray shows clinical consideration for volume overload Legionella antigen is negative Received Azithromycin 500 mg in the ED Start alfonzo Howell 12 mg twice daily, albuterol 2.5 mg 4 times daily as needed Start prednisone 40 mg p.o. daily for 5 days Obtain blood culture, sputum culture #. Iron deficiency anemia Reticulocyte count 0.87, corrected reticulocyte count 0.66-insufficient Iron 13, TIBC 375, percent saturation 3.47, transferrin 268, ferritin 57 Started on IV iron 125 mg daily Transfuse for Hb<7 Monitor CBC #. Mild Hyponatremia Monitor BMP #. D-dimer elevation D-dimer 1.4 Low risk for PE Obtain records from another facility Monitor vital signs #. Sick euthyroid TSH 0.046, free T41.68 Repeat labs in 4 to 6 weeks on outpatient basis #. HAGMA with NAGMA, resolved Chronic: #. Hypertension #. Hyperlipidemia #. GERD #. Restless leg syndrome #. BPH Continue lisinopril 40 mg p.o. daily, atorvastatin 40 mg p.o. daily, pantoprazole 40 mg p.o. daily, pramipexole 0.25 mg p.o. at bedtime, Tamsulosin 0.4 mg pO daily F: Pre cardiac cath fluids- 0.9 NS at 75 ml/hr E: Replete as required N: NPO A: Ambulatory DVT prophylaxis: Heparin drip GI prophylaxis: Protonix 40 mg Code status: Full code Anticipated discharge place: Pending clinical course Anticipated discharge time: Pending clinical course Dictation was produced using [employer] dictation software. please excuse any grammatical, word or spelling errors. Miranda Damian MD PGY-1 IM I have seen and evaluated the patient today. Discussed with the resident and agree with the residents finding and plan as documented in the resident's note. Changes highlighted in blue font. Objective - Vital Signs Vital signs: Vital Signs Temp 98.0 F 10/05/24 03:05 Pulse 81 10/05/24 03:05 Resp 18 10/05/24 03:05 BP 125/70 10/05/24 03:05 Pulse Ox 93 L 10/05/24 03:05 FiO2 Intake & Output 10/04/24 10/05/24 10/05/24 18:59 06:59 18:59 Intake Total 75.326 207.415 Balance 75.326 207.415 Weight 120.9 kg Intake: Intake, IV Titration 75.326 207.415 Amount Heparin Sod,Pork in 0.45% 75.326 207.415 NaCl 25,000 unit In 0.45 % NaCl 1 250ml.bag @ 8.3 UNITS/KG/HR 9.977 mls/hr IV .Q24H [facility] Rx#: [id number] Other: # Voids 1 - Labs CBC & Chem 7: 10/05/24 02:40 10/05/24 02:40 Labs: Abnormal Lab Results - Last 24 Hours (Table) 10/04/24 10/04/24 10/04/24 Range/Units 04:37 07:18 10:37 WBC (4.50-10.00) 10*3/uL RBC (4.40-5.60) 10*6/uL Hgb (13.0-17.0) g/dL Hct (39.6-50.0) % MCV (80.0-97.0) fL MCH (27.0-32.0) pg MCHC (32.0-37.0) g/dL MPV (9.5-12.2) fL APTT 32.1 H (22.0-30.0) sec D-Dimer 1.40 H (<0.60) mg/L FEU Sodium (137-145) mmol/L BUN (9-20) mg/dL Glucose (74-99) mg/dL POC Glucose (mg/dL) (70-110) mg/dL Iron (65-175) UG/DL % Saturation (15.00-50.00) Troponin I 0.196 H* (0.000-0.034) ng/mL TSH (0.465-4.680) mIU/L 10/04/24 10/04/24 10/04/24 Range/Units 10:37 10:37 10:52 WBC (4.50-10.00) 10*3/uL RBC (4.40-5.60) 10*6/uL Hgb (13.0-17.0) g/dL Hct (39.6-50.0) % MCV (80.0-97.0) fL MCH (27.0-32.0) pg MCHC (32.0-37.0) g/dL MPV (9.5-12.2) fL APTT (22.0-30.0) sec D-Dimer (<0.60) mg/L FEU Sodium (137-145) mmol/L BUN (9-20) mg/dL Glucose (74-99) mg/dL POC Glucose (mg/dL) 198 H (70-110) mg/dL Iron 13 L (65-175) UG/DL % Saturation 3.47 L (15.00-50.00) Troponin I 0.138 H* (0.000-0.034) ng/mL TSH (0.465-4.680) mIU/L 10/04/24 10/04/2425 Range/Units 16:42 19:12 02:40 WBC (4.50-10.00) 10*3/uL RBC (4.40-5.60) 10*6/uL Hgb (13.0-17.0) g/dL Hct (39.6-50.0) % MCV (80.0-97.0) fL MCH (27.0-32.0) pg MCHC (32.0-37.0) g/dL MPV (9.5-12.2) fL APTT 33.2 H (22.0-30.0) sec D-Dimer (<0.60) mg/L FEU Sodium (137-145) mmol/L BUN (9-20) mg/dL Glucose (74-99) mg/dL POC Glucose (mg/dL) 182 H (70-110) mg/dL Iron (65-175) UG/DL % Saturation (15.00-50.00) Troponin I (0.000-0.034) ng/mL TSH 0.046 L (0.465-4.680) mIU/L 10/05/24 10/05/24 10/05/24 Range/Units 02:40 02:40 02:40 WBC 15.99 H (4.50-10.00) 10*3/uL RBC 4.05 L (4.40-5.60) 10*6/uL Hgb 9.5 L (13.0-17.0) g/dL Hct 30.5 L (39.6-50.0) % MCV 75.3 L (80.0-97.0) fL MCH 23.5 L (27.0-32.0) pg MCHC 31.1 L (32.0-37.0) g/dL MPV 9.4 L (9.5-12.2) fL APTT 39.9 H (22.0-30.0) sec D-Dimer (<0.60) mg/L FEU Sodium 135 L (137-145) mmol/L BUN 30 H (9-20) mg/dL Glucose 142 H (74-99) mg/dL POC Glucose (mg/dL) (70-110) mg/dL Iron (65-175) UG/DL % Saturation (15.00-50.00) Troponin I (0.000-0.034) ng/mL TSH (0.465-4.680) mIU/L 10/05/24 Range/Units 05:52 WBC (4.50-10.00) 10*3/uL RBC (4.40-5.60) 10*6/uL Hgb (13.0-17.0) g/dL Hct (39.6-50.0) % MCV (80.0-97.0) fL MCH (27.0-32.0) pg MCHC (32.0-37.0) g/dL MPV (9.5-12.2) fL APTT (22.0-30.0) sec D-Dimer (<0.60) mg/L FEU Sodium (137-145) mmol/L BUN (9-20) mg/dL Glucose (74-99) mg/dL POC Glucose (mg/dL) 156 H (70-110) mg/dL Iron (65-175) UG/DL % Saturation (15.00-50.00) Troponin I (0.000-0.034) ng/mL TSH (0.465-4.680) mIU/L
[2024-10-05] MEDS: IV FLUID CONTINUATION 1,000 ML IV ONE (11:46)
[2024-10-05] MEDS: HEPARIN SODIUM (1,000 UNIT/ML) 1,000 UNIT in SODIUM CHLORIDE 0.9% 1,000 ML IRRIGATION ONE (11:47)
[2024-10-05] MEDS: HEPARIN SODIUM,PORCINE (1 ML) 2,500 UNIT in SODIUM CHLORIDE 0.9% 250 ML IRRIGATION ONE (11:47)
[2024-10-05] MEDS: LIDOCAINE 1% INJ 10MG/ML (20 ML MDV) SQ ONE (12:03)
[2024-10-05] MEDS: MIDAZOLAM 2 MG/2 ML VIAL IVP ONE (12:03)
[2024-10-05] MEDS: VERAPAMIL 2.5 MG/ML 4 ML VIAL INTRAARTER ONE (12:04)
[2024-10-05] MEDS: HEPARIN SODIUM 1,000 UN/ML (10ML VL) IVP ONE (12:14)
[2024-10-05] MEDS: IOPAMIDOL-370 200ML BTL INTRATHECA ONE (12:30)
--- NOTE | 2024-10-05 12:33 | P.CARDCATH ---
Date of Procedure: 10/05/24 Description of Procedure: History: Patient was referred for cardiac catheterization to evaluate for CAD. This is a 79-year-old gentleman admitted to the hospital increasing shortness of breath elevated troponin also has COPD probable Parkinson's as well and hypertension. He had a stress test in July or August that was unremarkable for ischemia but because of his presentation the shortness of breath and troponin elevation was advised cardiac cath after due discussion regarding risks benefits and options. He has hypertension, hyperlipidemia and some benign tremor. Procedure Details: The risks, benefits, complications, treatment options, and expected outcomes were discussed with the patient. The patient and/or family concurred with the proposed plan, giving informed consent. Patient was brought to the qc lab technician after IV hydration was begun and oral premedication was given. Patient was further sedated with midazolam. Patient was prepped and draped in the usual manner. Under strict aseptic precautions and local anesthesia a 6 Moroccan introducer was placed in the right radial artery. Using a JL 3/5 and a JR 4/0 catheters I performed coronary angiography and the same JR catheter was used to check LV pressures and LV gram was not performed. After the procedure was completed the sheaths and catheters were all removed. Hemostasis was achieved with TR band. Saturation in the fingers of the right hand was about 94%. Moderate conscious sedation time was 20 minutes. Patient's oxygen saturation hemodynamics and EKG were monitored closely. Findings: Hemodynamics: The left 1 end-diastolic pressure was 18 mmHg and there was no gradient across aortic Left Main: Patent vessel no significant disease bifurcates into LAD and circumflex LAD: Good caliber good distribution vessel minor irregularities no significant disease supplies a sizable amount of myocardium gives off septal and diagonal branches. Minor irregularities no significant disease in the LAD system and LAD curves over the apex is a prior inferoapical portion of the left ventricle. CIRC: Nondominant vessel gives off a high obtuse marginals and runs in the AV groove gives off a posterolateral branch, minor irregularities no significant disease some diffuse disease in the groove branch. RCA: Dominant vessel no significant disease distally bifurcates into PDA and PLV which have minor irregularities no significant disease LV: LV gram not done Closure Device: TR band Complications: None Estimated Blood Loss: Minimal Impression: This patient has elevated filling pressures no gradient right dominant system minor irregularities no significant obstructive CAD Pre Procedure Diagnosis: Non-ST elevation ID with shortness of breath Final Post Procedure Diagnosis: Noncritical CAD some diastolic dysfunction Recommendation: Aggressive medical therapy with addition of Aldactone small dose of Lasix and statins and beta-rema and lisinopril. Discussed the results with patient and family will discharge tomorrow will make adjustment with medications and also he is going to have a pulmonary evaluation as well. Complications: None; patient tolerated the procedure well. Disposition: Telemetry 3 S.- hemodynamically stable. Condition: Stable Discharge Disposition: Discharge patient home in a.m.
[2024-10-05 12:42] LABS: Glucose,Whole Blood 164 mg/dL (70-110)
[2024-10-05] MEDS: SPIRONOLACTONE 25 MG TAB PO SCH (12:49)
--- NOTE | 2024-10-05 15:14 | P.CNPUL ---
History of Present Illness Consult date: 10/05/24 Requesting physician: Miranda Damian Reason for consult: dyspnea, COPD Chief complaint: Shortness of breath, cough, congestion History of present illness: This is a 79-year-old male patient with a known history of chronic obstructive pulmonary disease, former smoker, hypertension, hyperlipidemia who presented to [facility] with complaints of shortness of breath, cough congestion and chest pressure. He was transferred as a NSTEMI. He did undergo cardiac catheterization here today that revealed no significant cannot obstructive coronary artery disease and was to be treated medically. He continued to have issues with shortness of breath and wheezing and we are consulted today for the same. Chest x-ray revealed mild fluid volume overload. Echocardiogram revealed preserved left ventricular systolic function with an ejection fraction of 50 to 55%. White count 15.9. Hemoglobin 9.5. Platelets 230. Sodium 135. Potassium 4.2. Bicarb 24. BUN 30. Creatinine 0.96. Glucose 142. Troponin 0.20, 0.19, 0.13. proBNP 1958. He is seen today on the selective care unit. He is resting in bed. Awake and alert in no acute distress. He is dyspneic with minimal conversation. Dyspneic with minimal exertion. He states he did see a purchasing expeditor in [place] this year and had a CT scan done of the chest that revealed no evidence of pulmonary nodules. There was evidence of CO PD/emphysema. He is maintained on Trelegy and albuterol in the outpatient setting. Currently maintaining O2 saturations in the 90s on 2 L/min per nasal cannula. Afebrile. Hemodynamically stable. Review of Systems REVIEW OF SYSTEMS: CONSTITUTIONAL: Denies any recent significant weight loss or weight gain. EYES: Denies change in vision. EARS, NOSE, MOUTH, THROAT: Denies headaches, denies sore throat. CARDIOVASCULAR: Positive for chest pain, no palpitations or syncopal episodes. RESPIRATORY: Positive for shortness of breath, cough, congestion no hemoptysis. GASTROINTESTINAL: Denies change in appetite, denies abdominal pain GENITOURINARY: Denies hematuria, denies infections. MUSKULOSKELETAL: Denies pain, denies swelling. INTEGUMENTARY: Denies rash, denies eczema. NEUROLOGICAL: Denies recent memory loss, no recent seizure activity. PSYCHIATRIC: Denies anxiety, denies depression. HEMATOLOGIC/LYMPHATIC: Denies anemia, denies enlarged lymph nodes. Past Medical History Past Medical History: COPD, Hyperlipidemia, Hypertension History of Any Multi-Drug Resistant Organisms: None Reported Past Surgical History: Orthopedic Surgery Smoking Status: Former smoker Past Alcohol Use History: None Reported Medications and Allergies Home Medications Medication Instructions Recorded Confirmed Type Lovastatin [Mevacor] 20 mg PO HS 04/01/16 10/04/24 History Omeprazole 40 mg PO DAILY 04/01/16 10/04/24 History Albuterol Sulfate [Albuterol 2 puff PO RT-QID PRN 10/04/24 10/04/24 History Sulfate Hfa] Aspirin 81 mg PO DAILY 10/04/24 10/04/24 History Chlorhexidine Gluconate [Peridex] 15 ml PO BID 10/04/24 10/04/24 History Cholecalciferol [Vitamin D3 (25 25 mcg PO HS 10/04/24 10/04/24 History Mcg = 1000 Iu)] Clotrimazole/Betameth Cream 1 applic TOPICAL BID 10/04/24 10/04/24 History [Lotrisone] Famotidine [Pepcid] 40 mg PO HS 10/04/24 10/04/24 History Ibuprofen [Motrin] 600 mg PO TID 10/04/24 10/04/24 History Meloxicam [Mobic] 15 mg PO DAILY 10/04/24 10/04/24 History Pramipexole [Mirapex] 0.25 mg PO HS 10/04/24 10/04/24 History Tamsulosin HCl [Flomax] 0.4 mg PO BID 10/04/24 10/04/24 History Umeclidinium Brm/Vilanterol Tr 1 puff INHALATION RT-DAILY 10/04/24 10/04/24 History [Anoro Ellipta 62.5-25 Mcg INH] amLODIPine [Norvasc] 5 mg PO HS 10/04/24 10/04/24 History lisinopriL [Lisinopril] 40 mg PO DAILY 10/04/24 10/04/24 History Allergies Allergy/AdvReac Type Severity Reaction Status Date / Time peanut Allergy Anaphylaxis Verified 10/04/24 07:57 morphine AdvReac Severe Sedation Verified 10/04/24 07:57 Physical Exam Vitals: Vital Signs Temp Pulse Pulse Pulse Resp BP BP 10/05/24 12:57 79 17 133/61 10/05/24 12:43 81 17 121/69 10/05/24 11:32 81 10/05/24 11:24 80 10/05/24 09:19 97.7 F 80 17 133/66 10/05/24 08:18 76 10/05/24 08:12 79 10/05/24 07:59 77 10/05/24 03:05 98.0 F 81 18 125/70 10/04/24 23:34 98.0 F 85 18 134/75 10/04/24 22:12 98.0 F 79 18 138/70 10/04/24 21:49 98.8 F 75 16 116/72 10/04/24 20:08 85 10/04/24 19:58 82 10/04/24 19:38 98.7 F 82 18 115/52 10/04/24 16:00 98.7 F 81 22 113/59 10/04/24 15:48 84 10/04/24 15:40 80 Pulse Ox 10/05/24 12:57 94 L 10/05/24 12:43 94 L 10/05/24 11:32 10/05/24 11:24 10/05/24 09:19 92 L 10/05/24 08:18 10/05/24 08:12 10/05/24 07:59 91 L 10/05/24 03:05 93 L 10/04/24 23:34 98 10/04/24 22:12 96 10/04/24 21:49 98 10/04/24 20:08 10/04/24 19:58 10/04/24 19:38 95 10/04/24 16:00 95 10/04/24 15:48 10/04/24 15:40 Intake and Output 10/05/24 10/05/24 10/05/24 06:59 14:59 22:59 Intake Total 128.383 50 Balance 128.383 50 Intake: IV 50 Intake, IV Titration 128.383 Amount Heparin Sod,Pork in 0.45% 128.383 NaCl 25,000 unit In 0.45 % NaCl 1 250ml.bag @ 8.3 UNITS/KG/HR 9.977 mls/hr IV .Q24H [facility] Rx#: [id number] Other: # Voids 1 Weight 120.9 kg GENERAL EXAM: Alert, pleasant 79-year-old male, on 2 L nasal cannula, fairly comfortable in no apparent distress. HEAD: Normocephalic. EYES: Normal reaction of pupils, equal size. NOSE: Clear with pink turbinates. THROAT: No erythema or exudates. NECK: No masses, no JVD. CHEST: No chest wall deformity. LUNGS: Equal air entry with bilateral end expiratory, diminished. CVS: S1 and S2 normal with no audible murmur, regular rhythm. ABDOMEN: No hepatosplenomegaly, normal bowel sounds, no guarding or rigidity. SPINE: No scoliosis or deformity SKIN: No rashes CENTRAL NERVOUS SYSTEM: No focal deficits, tone is normal in all 4 extremities. EXTREMITIES: There is no peripheral edema. No clubbing, no cyanosis. Peripheral pulses are intact. Results - Laboratory Findings CBC and BMP: 10/05/24 02:40 10/05/24 02:40 PT/INR, D-dimer PT 10.4 sec (10.0-12.5) 10/05/24 02:40 INR 0.9 (<1.2) 10/05/24 02:40 D-Dimer 1.40 mg/L FEU (<0.60) H 10/04/24 04:37 Abnormal lab findings: Abnormal Labs 10/04/24 10/04/24 10/04/24 04:37 04:37 04:37 WBC 13.52 H RBC Hgb 10.9 L Hct 34.1 L MCV 74.8 L MCH 23.9 L MCHC MPV Immature Gran # 0.05 H Neutrophils # 12.52 H Lymphocytes # 0.62 L Eosinophils # 0.00 L APTT 35.5 H D-Dimer Sodium 133 L Carbon Dioxide 18 L BUN 24 H Glucose 172 H POC Glucose (mg/dL) Hemoglobin A1c Iron % Saturation Troponin I TSH 10/04/24 10/04/24 10/04/24 04:37 04:37 07:18 WBC RBC Hgb Hct MCV MCH MCHC MPV Immature Gran # Neutrophils # Lymphocytes # Eosinophils # APTT D-Dimer 1.40 H Sodium Carbon Dioxide BUN Glucose POC Glucose (mg/dL) Hemoglobin A1c Iron % Saturation Troponin I 0.208 H* 0.196 H* TSH 10/04/24 10/04/24 10/04/24 10:37 10:37 10:37 WBC RBC Hgb Hct MCV MCH MCHC MPV Immature Gran # Neutrophils # Lymphocytes # Eosinophils # APTT 32.1 H D-Dimer Sodium Carbon Dioxide BUN Glucose POC Glucose (mg/dL) Hemoglobin A1c Iron 13 L % Saturation 3.47 L Troponin I 0.138 H* TSH 10/04/24 10/04/24 10/04/24 10:52 16:42 19:12 WBC RBC Hgb Hct MCV MCH MCHC MPV Immature Gran # Neutrophils # Lymphocytes # Eosinophils # APTT 33.2 H D-Dimer Sodium Carbon Dioxide BUN Glucose POC Glucose (mg/dL) 198 H 182 H Hemoglobin A1c Iron % Saturation Troponin I TSH 10/05/24 10/05/24 10/05/24 02:40 02:40 02:40 WBC 15.99 H RBC 4.05 L Hgb 9.5 L Hct 30.5 L MCV 75.3 L MCH 23.5 L MCHC 31.1 L MPV 9.4 L Immature Gran # Neutrophils # Lymphocytes # Eosinophils # APTT D-Dimer Sodium Carbon Dioxide BUN Glucose POC Glucose (mg/dL) Hemoglobin A1c 6.6 H Iron % Saturation Troponin I TSH 0.046 L 10/05/24 10/05/24 10/05/24 02:40 02:40 05:52 WBC RBC Hgb Hct MCV MCH MCHC MPV Immature Gran # Neutrophils # Lymphocytes # Eosinophils # APTT 39.9 H D-Dimer Sodium 135 L Carbon Dioxide BUN 30 H Glucose 142 H POC Glucose (mg/dL) 156 H Hemoglobin A1c Iron % Saturation Troponin I TSH 10/05/24 12:40 WBC RBC Hgb Hct MCV MCH MCHC MPV Immature Gran # Neutrophils # Lymphocytes # Eosinophils # APTT D-Dimer Sodium Carbon Dioxide BUN Glucose POC Glucose (mg/dL) 164 H Hemoglobin A1c Iron % Saturation Troponin I TSH - Diagnostic Findings Chest x-ray: image reviewed Assessment and Plan Assessment: Non-ST segment elevation myocardial infarction with chest pressure in a patient found to have no significant obstructive coronary artery disease via heart catheterization today Acute exacerbation of chronic obstructive pulmonary disease Acute hypoxic respiratory failure secondary to above Former smoker Hypertension Hyperlipidemia Gastroesophageal reflux disease Benign prostatic hyperplasia Plan: The patient was seen and evaluated Chest x-ray, labs and medications reviewed Cardiac catheterization report reviewed Add DuoNeb inhalations Add Pulmicort and Perforomist inhalations Add Solu-Medrol 60 mg IV every 6 hours Remains on a heparin drip Remains on diuretics Resume home medications Titrate the FiO2 as tolerated Increase his activity as tolerated We will continue to follow and make further recommendations based on his clinical status I have personally seen and examined the patient, performed the documentation and the assessment and plan as written. Number of minutes spent on the visit: 20 Dictation was produced using [employer] dictation software. Please excuse any grammatical, word or spelling errors. Time with Patient: Greater than 30
[2024-10-05 16:45] LABS: Glucose,Whole Blood 185 mg/dL (70-110)
[2024-10-05] MEDS: methylPREDNISolone SOD SUCCI 125 MG/2 ML VIAL IV SCH (17:25)
[2024-10-05] MEDS ORDERED: FERROUS SULFATE 325 MG TAB PO SCH (17:30)
[2024-10-05 20:20] LABS: Glucose,Whole Blood 167 mg/dL (70-110)
[2024-10-05] MEDS: BUDESONIDE 1 MG/2 ML NEBU INHALATION SCH (21:27)
[2024-10-05] MEDS: ALPRAZolam 0.5 MG TAB PO PRN (23:19)
[2024-10-06 06:07] LABS: Glucose,Whole Blood 170 mg/dL (70-110)
[2024-10-06 07:21] LABS: HCT 30.5 % (39.6-50.0); HGB 9.3 g/dL (13.0-17.0); MCH 23.3 pg (27.0-32.0); MCHC 30.5 g/dL (32.0-37.0); MCV 76.4 fL (80.0-97.0); Mean Platelet Volume 10.2 fL (9.5-12.2); Platelet Count 267 10*3/uL (140-440); RBC 3.99 10*6/uL (4.40-5.60); RDW 16.3 % (11.5-14.5); WBC 12.08 10*3/uL (4.50-10.00)
[2024-10-06 07:38] LABS: African American GFR (CKD) >90 (>60 ml/min/1.73 sqM); Anion Gap 10 mmol/L; Blood Urea Nitrogen 27 mg/dL (9-20); Calcium 9.1 mg/dL (8.4-10.2); Carbon Dioxide 22 mmol/L (22-30); Chloride 108 mmol/L (98-107); Glucose 167 mg/dL (74-99); Non-African American GFR(CKD) 85 (>60 ml/min/1.73 sqM); Potassium 4.3 mmol/L (3.5-5.1); Sodium 140 mmol/L (137-145)
[2024-10-06] MEDS: SODIUM FERRIC GLUCONAT-SUCROSE 125 MG in SODIUM CHLORIDE 0.9% 100 ML IVPB SCH (09:31)
[2024-10-06] MEDS: FUROSEMIDE 20 MG TAB PO SCH (09:39)
[2024-10-06] MEDS: METOPROLOL TARTRATE 25 MG TAB PO SCH (09:41)
--- NOTE | 2024-10-06 10:34 | P.PN ---
Subjective Progress Note Date: 10/06/24 Principal diagnosis: Hospital course: Patient is a 79 year old male with past medical history of COPD, hypertension, hyperlipidemia presented to the ED with shortness of breath. Patient initially went to the hospital in [place] for fever and shortness of breath. Respiratory panel was negative. His troponin was high which is why he was sent to the ED here at [facility]. Patient mentioned that he recently moved here from [place] in August 2024. He was then shoveling rock which is when his symptoms started. At the time of this interview the patient does not complain of shortness of breath. He also experienced chest pressure, nonradiating. Associated with that he also had nausea and profuse sweating. He reports being a former smoker. Patient denies using oxygen at home. Denies fever, chills, palpitations, abdominal pain, vomiting, hematuria, dysuria, hematochezia, melena, headache, slurred speech, numbness, tingling, dizziness, lightheadedness, blurred vision, double vision. ED documentation reviewed. In the ED patient was treated with aspirin 325 mg, atorvastatin 80 mg, azithromycin 5 mg, DuoNeb, 0.9 normal saline, heparin drip. 10/05/24: Patient is seen and examined at bedside today. Denies any new complaints today. 10/06/24: Patient evaluated at bedside. Patient underwent cardiac cath yesterday. Review of systems: Pertinent positives and negatives as discussed in HPI, a complete review of systems was performed and all other systems are negative. Vitals: Signs Reviewed, SpO2 92% on 3 L oxygen via nasal cannula Physical examination: General: nontoxic, no distress, appears at stated age, on 2L oxygen via nasal cannula Derm: warm, dry, intact Head: atraumatic, normocephalic, symmetric Eyes: EOMI, anicteric sclera Mouth: no lip lesion, mucus membranes moist Cardiovascular: S1 S2 reg, no murmur Lungs: CTA bilateral, no rhonchi, no rales, no accessory muscle use Abdominal: soft, non-tender to palpation Extremities: No cyanosis, clubbing, or pedal edema. Neuro: Alert, Oriented, Gross neurological examination did not reveal any focal deficits. Psych: well appearing, appropriate affect Data Reviewed Today: Labs: WBC 12.08, hemoglobin 9.3, glucose 167 Microbio: Blood culture shows no growth 24 hours Assessment/Plan: Patient is a 79 year old male with past medical history of COPD, hypertension, hyperlipidemia presented to the ED with shortness of breath. Patient initially went to the hospital in [place] for fever and shortness of breath and chest pressure. Patient underwent cardiac cath that showed noncritical CAD with some diastolic dysfunction. Active: #. Acute hypoxic respiratory failure #. COPD exacerbation #. Leukocytosis Chest x-ray shows clinical consideration for volume overload Legionella antigen is negative Blood culture shows no growth 24 hours Received Azithromycin 500 mg in the ED Continue supplemental oxygen as needed, wean FiO2 to maintain SpO2 >88 Started on Pulmicort and Perforomist inhalation Continue DuoNebs, albuterol 2.5 mg 4 times daily as needed Prednisone discontinued Started on Solu-Medrol 60 mg IV every 6 hours Pending sputum culture Pulmonology is following #. Type I NSTEMI #. Pulmonary edema #. S/p cardiac catheterization on 10/05/2024 #. Noncritical CAD with some diastolic dysfunction EKG independently interpreted as sinus rhythm, rate 84 bpm, QTc 414 ms Chest x-ray shows clinical consideration for volume overload Troponin I 0.208, 0.196, 0.138 NT proBNP 1957 Echocardiogram shows EF 50-55%, left ventricular systolic function borderline normal with no segmental wall motion abnormality, mild to moderate mitral with mild tricuspid regurgitation and mild pulmonary hypertension A1c 6.6, triglycerides 64.9, cholesterol 113, LDL 47.7, VLDL 20.98, HDL 52.3, TSH 0.046, free T41.68 Cardiac catheterization on 10/05/24 showed elevated filling pressures with no gradient, right dominant system, minor irregularities, no significant obstru ctive CAD Heparin drip discontinued Received aspirin 325 mg p.o. once in the ED Continue aspirin 81 mg p.o. daily, atorvastatin 40 mg p.o. daily Received Lasix 40 mg IV once Started on metoprolol 5 mg p.o. daily, Lasix 20 mg p.o. daily, lisinopril 20 g p.o. daily, Aldactone 25 mg p.o. daily Continue nitroglycerin 0.4 mg sublingual every 4 hours as needed Continue telemetry monitoring Cardiology is following, recommend aggressive medical therapy with addition of Aldactone, small dose of Lasix, statins, beta-rema, lisinopril #. Iron deficiency anemia Reticulocyte count 0.87, corrected reticulocyte count 0.66-insufficient Iron 13, TIBC 375, percent saturation 3.47, transferrin 268, ferritin 57 Continue IV iron 125 mg daily Transfuse for Hb<7 Monitor CBC #. Mild Hyponatremia Monitor BMP #. D-dimer elevation D-dimer 1.4 Low risk for PE Monitor vital signs #. Sick euthyroid TSH 0.046, free T41.68 Repeat labs in 4 to 6 weeks on outpatient basis #. HAGMA with NAGMA, resolved Chronic: #. Hypertension #. Hyperlipidemia #. GERD #. Restless leg syndrome #. BPH Continue atorvastatin 40 mg p.o. daily, pantoprazole 40 mg p.o. daily, pramipexole 0.25 mg p.o. at bedtime, Tamsulosin 0.4 mg pO daily Lisinopril 20 mg PO BID F: None E: Replete as required N: Heart healthy diet none A: Ambulatory DVT prophylaxis: Heparin drip GI prophylaxis: Protonix 40 mg Code status: Full code Anticipated discharge place: Pending clinical course Anticipated discharge time: Pending clinical course Dictation was produced using [employer] dictation software. please excuse any grammatical, word or spelling errors. Miranda Damian MD PGY-1 IM I have seen and evaluated the patient today. Discussed with the resident and agree with the residents finding and plan as documented in the resident's note. Changes highlighted in blue font. Objective - Vital Signs Vital signs: Vital Signs Temp 97.7 F 10/06/24 04:00 Pulse 76 10/06/24 04:00 Resp 18 10/06/24 04:00 BP 114/62 10/06/24 04:00 Pulse Ox 92 L 10/06/24 04:00 FiO2 Intake & Output 10/05/24 10/06/24 10/06/24 18:59 06:59 18:59 Intake Total 50 990 Balance 50 990 Weight 124.3 kg Intake: IV 50 Intake, IV Titration 450 Amount Sodium Chloride 0.9% 1, 450 000 ml @ 75 mls/hr IV . [id number] EMILY Rx#:[id number] Oral 540 Other: # Voids 1 - Labs CBC & Chem 7: 10/06/24 06:27 10/06/24 06:27 Labs: Abnormal Lab Results - Last 24 Hours (Table) 10/05/24 10/05/24 10/05/24 Range/Units 02:40 12:40 16:39 POC Glucose (mg/dL) 164 H 185 H (70-110) mg/dL Hemoglobin A1c 6.6 H (<=6.0) % 10/05/24 10/06/24 Range/Units 20:19 06:06 POC Glucose (mg/dL) 167 H 170 H (70-110) mg/dL Hemoglobin A1c (<=6.0) % Microbiology - Last 24 Hours (Table) 10/04/24 10:37 Blood Culture - Preliminary Blood
--- NOTE | 2024-10-06 11:08 | P.PN ---
Subjective HISTORY OF PRESENT ILLNESS: This is a 79-year-old male with a past medical history significant for COPD, hypertension, hyperlipidemia, and obesity. Patient does not follow with a insurance checker. We have been asked to see the patient in consultation for elevated troponins. Patient examined at the bedside. Patient initially presented to [facility] with a chief complaint of shortness of breath. Patient was found to have elevated troponins and was transferred to [facility] for further evaluation. The patient denies having any chest pain or pressure. He reports improvement in his shortness of breath. He remains on IV heparin. DIAGNOSTICS: - EKG reveals sinus mechanism with no signs of acute ischemia. - Chest xray clinical consideration for volume overload. - Laboratory data: WBC 13.52. Hemoglobin 10.9. Platelet count 214. D-dimer 1.40. Sodium 133. Potassium 4.2. BUN 24. Creatinine 0.89. Troponin 0.208. 0.196. proBNP 1960. - Current home cardiac medications include lisinopril 40 mg daily, aspirin 81 mg daily, amlodipine 5 mg at night, lovastatin 20 mg at night. - Most recent echocardiogram obtained in March 2021 revealing ejection fraction 60 to 65%, trace to mild MR, moderate concentric LVH - Patient underwent Lexiscan stress test in August 2024 which was negative for ischemia - Cardiac catheterization history: Patient denies 10/06/2024 Patient is status post cardiac catheterization with Dr. Bhardwaj revealing right dominant system with minor irregularities and no significant obstructive CAD. Patient was found to have elevated filling pressures. Patient examined this morning at bedside. Patient currently denies chest pain or pressure. He denies shortness of breath. Echocardiogram completed revealing ejection fraction 50 to 55%, moderate concentric LVH, mild to moderate MR, mild tricuspid regurgitation. PHYSICAL EXAM: VITAL SIGNS: Reviewed. GENERAL: Well-developed in no acute distress. HEENT: Head is normocephalic. Pupils are equal, round. Sclerae anicteric. Mucous membranes of the mouth are moist. Neck supple. No JVD or thyromegaly LUNGS: Respirations even and unlabored. Lungs with decreased air change bilaterally HEART: Regular rate and rhythm. S1 and S2 heard. ABDOMEN: Soft. Nondistended. Nontender. EXTREMITIES: Normal range of motion. No clubbing or cyanosis. Peripheral pulses intact. No lower extremity edema NEUROLOGIC: Awake and alert. Oriented x 3. ASSESSMENT: Shortness of breath NSTEMI, s/p cardiac catheterization revealing no obstructive CAD Elevated LVEDP Acute COPD exacerbation Hypertension Hyperlipidemia Morbid obesity: BMI 40.3 Former nicotine dependence PLAN: Continue aspirin, Lipitor, Lasix, lisinopril, metoprolol, and Aldactone Patient is stable for discharge from a cardiac standpoint Patient to follow-up postdischarge in the office with Dr. Winston (patient request) We will sign off. Please reconsult if needed. Nurse practitioner note has been reviewed by physician. Signing provider agrees with the documented findings, assessment, and plan of care documented by PLUG GROWER as a scribe. Objective - Vital Signs Vital signs: Vital Signs Temp 97.7 F 10/06/24 09:25 Pulse 83 10/06/24 09:25 Resp 26 H 10/06/24 09:25 BP 134/73 10/06/24 09:25 Pulse Ox 92 L 10/06/24 09:25 FiO2 Intake & Output 10/05/24 10/06/24 10/06/24 18:59 06:59 18:59 Intake Total 50 990 480 Balance 50 990 480 Weight 124.3 kg Intake: IV 50 Intake, IV Titration 450 Amount Sodium Chloride 0.9% 1, 450 000 ml @ 75 mls/hr IV . [id number] EMILY Rx#:[id number] Oral 540 480 Other: # Voids 1 - Labs CBC & Chem 7: 10/06/24 06:27 10/06/24 06:27 Labs: Abnormal Lab Results - Last 24 Hours (Table) 10/05/24 10/05/24 10/05/24 Range/Units 12:40 16:39 20:19 WBC (4.50-10.00) 10*3/uL RBC (4.40-5.60) 10*6/uL Hgb (13.0-17.0) g/dL Hct (39.6-50.0) % MCV (80.0-97.0) fL MCH (27.0-32.0) pg MCHC (32.0-37.0) g/dL Chloride (98-107) mmol/L BUN (9-20) mg/dL Glucose (74-99) mg/dL POC Glucose (mg/dL) 164 H 185 H 167 H (70-110) mg/dL 10/06/24 10/06/24 10/06/24 Range/Units 06:06 06:27 06:27 WBC 12.08 H (4.50-10.00) 10*3/uL RBC 3.99 L (4.40-5.60) 10*6/uL Hgb 9.3 L (13.0-17.0) g/dL Hct 30.5 L (39.6-50.0) % MCV 76.4 L (80.0-97.0) fL MCH 23.3 L (27.0-32.0) pg MCHC 30.5 L (32.0-37.0) g/dL Chloride 108 H (98-107) mmol/L BUN 27 H (9-20) mg/dL Glucose 167 H (74-99) mg/dL POC Glucose (mg/dL) 170 H (70-110) mg/dL Microbiology - Last 24 Hours (Table) 10/04/24 10:37 Blood Culture - Preliminary Blood
[2024-10-06 11:39] LABS: Glucose,Whole Blood 199 mg/dL (70-110)
--- NOTE | 2024-10-06 16:10 | P.PN ---
Subjective Progress Note Date: 10/06/24 This is a 79-year-old male patient with a known history of chronic obstructive pulmonary disease, former smoker, hypertension, hyperlipidemia who presented to [facility] with complaints of shortness of breath, cough congestion and chest pressure. He was transferred as a NSTEMI. He did undergo cardiac catheterization here today that revealed no significant cannot obstructive coronary artery disease and was to be treated medically. He continued to have issues with shortness of breath and wheezing and we are consulted today for the same. Chest x-ray revealed mild fluid volume overload. Echocardiogram revealed preserved left ventricular systolic function with an ejection fraction of 50 to 55%. White count 15.9. Hemoglobin 9.5. Platelets 230. Sodium 135. Potassium 4.2. Bicarb 24. BUN 30. Creatinine 0.96. Glucose 142. Troponin 0.20, 0.19, 0.13. proBNP 1958. He is seen today on the selective care unit. He is resting in bed. Awake and alert in no acute distress. He is dyspneic with minimal conversation. Dyspneic with minimal exertion. He states he did see a pulmonol ogist in [place] this year and had a CT scan done of the chest that revealed no evidence of pulmonary nodules. There was evidence of COPD/emphysema. He is maintained on Trelegy and albuterol in the outpatient setting. Currently maintaining O2 saturations in the 90s on 2 L/min per nasal cannula. Afebrile. Hemodynamically stable. The patient is seen today October 06, 2024 in follow-up on the selective care unit. He is currently sitting up at the bedside. Awake and alert in no acute distress. Maintaining O2 saturations in the 90s on 3 L/min per nasal cannula. He has been afebrile. Hemodynamically stable. White count 12.0. Hemoglobin 9.3. Platelets 267. Sodium 140. Potassium 4.3. Bicarb 22. BUN 27. Creatinine 0.82. Glucose 165. He remains on DuoNeb inhalations, Pulmicort and Perforomist inhalations, Solu-Medrol. Remains on oral diuretics. Objective - Vital Signs Vital signs: Vital Signs Temp 97.7 F 10/06/24 09:25 Pulse 78 10/06/24 12:15 Resp 26 H 10/06/24 09:25 BP 134/73 10/06/24 09:25 Pulse Ox 92 L 10/06/24 09:25 FiO2 Intake & Output 10/05/24 10/06/24 10/06/24 18:59 06:59 18:59 Intake Total 50 990 598 Balance 50 990 598 Weight 124.3 kg Intake: IV 50 Intake, IV Titration 450 Amount Sodium Chloride 0.9% 1, 450 000 ml @ 75 mls/hr IV . [id number] EMILY Rx#:[id number] Oral 540 598 Other: # Voids 1 - Exam GENERAL EXAM: Alert, 79-year-old male, on 2 L nasal cannula, comfortable in no apparent distress. HEAD: Normocephalic. EYES: Normal reaction of pupils, equal size. NOSE: Clear with pink turbinates. THROAT: No erythema or exudates. NECK: No masses, no JVD. CHEST: No chest wall deformity. LUNGS: Equal air entry with bilateral end expiratory, diminished. CVS: S1 and S2 normal with no audible murmur, regular rhythm. ABDOMEN: No hepatosplenomegaly, normal bowel sounds, no guarding or rigidity. SPINE: No scoliosis or deformity SKIN: No rashes CENTRAL NERVOUS SYSTEM: No focal deficits, tone is normal in all 4 extremities. EXTREMITIES: There is no peripheral edema. No clubbing, no cyanosis. Peripheral pulses are intact. - Labs CBC & Chem 7: 10/06/24 06:27 10/06/24 06:27 Labs: Abnormal Lab Results - Last 24 Hours (Table) 10/05/24 10/05/24 10/06/24 Range/Units 16:39 20:19 06:06 WBC (4.50-10.00) 10*3/uL RBC (4.40-5.60) 10*6/uL Hgb (13.0-17.0) g/dL Hct (39.6-50.0) % MCV (80.0-97.0) fL MCH (27.0-32.0) pg MCHC (32.0-37.0) g/dL Chloride (98-107) mmol/L BUN (9-20) mg/dL Glucose (74-99) mg/dL POC Glucose (mg/dL) 185 H 167 H 170 H (70-110) mg/dL 10/06/24 10/06/24 10/06/24 Range/Units 06:27 06:27 11:37 WBC 12.08 H (4.50-10.00) 10*3/uL RBC 3.99 L (4.40-5.60) 10*6/uL Hgb 9.3 L (13.0-17.0) g/dL Hct 30.5 L (39.6-50.0) % MCV 76.4 L (80.0-97.0) fL MCH 23.3 L (27.0-32.0) pg MCHC 30.5 L (32.0-37.0) g/dL Chloride 108 H (98-107) mmol/L BUN 27 H (9-20) mg/dL Glucose 167 H (74-99) mg/dL POC Glucose (mg/dL) 199 H (70-110) mg/dL Microbiology - Last 24 Hours (Table) 10/04/24 10:37 Blood Culture - Preliminary Blood Assessment and Plan Assessment: Non-ST segment elevation myocardial infarction with chest pressure in a patient found to have no significant obstructive coronary artery disease via heart catheterization today Acute exacerbation of chronic obstructive pulmonary disease Acute hypoxic respiratory failure secondary to above Former smoker Hypertension Hyperlipidemia Gastroesophageal reflux disease Benign prostatic hyperplasia Plan: The patient was seen and evaluated Labs and medications reviewed Continue DuoNeb inhalations Continue Pulmicort and Perforomist inhalations Continue Solu-Medrol 60 mg IV every 6 hours Remains on diuretics Titrate the FiO2 as tolerated Increase his activity as tolerated We will continue to follow I have personally seen and examined the patient, performed the documentation and the assessment and plan as written. Number of minutes spent on the visit: 10 Dictation was produced using [employer] dictation software. Please excuse any grammatical, word or spelling errors.
[2024-10-06 16:13] VITALS: RESP 22
--- NOTE | 2024-10-06 16:13 | CT ---
EXAMINATION TYPE: CT angio chest DATE OF EXAM: 10/06/2024 COMPARISON: None CLINICAL INDICATION: Male, 79 years old with history of Hypoxemia; PHH, Hypoxemia TECHNIQUE: CTA scan of the thorax is performed with IV Contrast, patient injected with 85ml mL of Isovue 370, pu lmonary embolism protocol. MIP images are created and reviewed. CT DLP: 711.[address] CTDI: mGy Automated exposure control for dose reduction was used. FINDINGS: There are no filling defects within the pulmonary arterial circulation to suggest pulmonary embolus. No thoracic aortic aneurysm. There is no mediastinal, hilar or axillary adenopathy. There is marked honeycomb lung in the right upper lobe, right middle lobe and bilateral lower lobes. There are small bilateral pleural effusions and there is mild compressive atelectasis. There are area s of marked interstitial density in the lower lobes consistent with interstitial fibrosis. Limited scanning through the upper abdomen reveals mild splenomegaly. There are no focal osseous lesi ons. IMPRESSION: 1. No evidence of pulmonary embolism. 2. Marked interstitial lung disease as described above. 3. Mild splenomegaly. [facility], Workstation: RENÉ, 10/06/2024 4:11 PM
[2024-10-06 16:34] LABS: Glucose,Whole Blood 145 mg/dL (70-110)
[2024-10-06 19:59] LABS: Glucose,Whole Blood 162 mg/dL (70-110)
[2024-10-06 22:12] VITALS: TEMP 97.6
[2024-10-07 06:02] LABS: Glucose,Whole Blood 159 mg/dL (70-110)
[2024-10-07 06:59] LABS: HGB 9.1 g/dL (13.0-17.0); MCH 23.5 pg (27.0-32.0); MCHC 31.4 g/dL (32.0-37.0); MCV 74.9 fL (80.0-97.0); Mean Platelet Volume 9.8 fL (9.5-12.2); Platelet Count 256 10*3/uL (140-440); RBC 3.87 10*6/uL (4.40-5.60); RDW 16.5 % (11.5-14.5); WBC 14.29 10*3/uL (4.50-10.00)
[2024-10-07 07:17] LABS: African American GFR (CKD) >90 (>60 ml/min/1.73 sqM); Anion Gap 10 mmol/L; Blood Urea Nitrogen 23 mg/dL (9-20); Calcium 9.3 mg/dL (8.4-10.2); Carbon Dioxide 23 mmol/L (22-30); Chloride 103 mmol/L (98-107); Glucose 147 mg/dL (74-99); Non-African American GFR(CKD) 79 (>60 ml/min/1.73 sqM); Potassium 4.3 mmol/L (3.5-5.1); Sodium 136 mmol/L (137-145)
--- NOTE | 2024-10-07 11:34 | P.PN ---
Subjective Progress Note Date: 10/07/24 Principal diagnosis: Hospital course: Patient is a 79 year old male with past medical history of COPD, hypertension, hyperlipidemia presented to the ED with shortness of breath. Patient initially went to the hospital in [place] for fever and shortness of breath. Respiratory panel was negative. His troponin was high which is why he was sent to the ED here at [facility]. Patient mentioned that he recently moved here from [place] in August 2024. He was then shoveling rock which is when his symptoms started. At the time of this interview the patient does not complain of shortness of breath. He also experienced chest pressure, nonradiating. Associated with that he also had nausea and profuse sweating. He reports being a former smoker. Patient denies using oxygen at home. Denies fever, chills, palpitations, abdominal pain, vomiting, hematuria, dysuria, hematochezia, melena, headache, slurred speech, numbness, tingling, dizziness, lightheadedness, blurred vision, double vision. ED documentation reviewed. In the ED patient was treated with aspirin 325 mg, atorvastatin 80 mg, azithromycin 5 mg, DuoNeb, 0.9 normal saline, heparin drip. 10/05/24: Patient is seen and examined at bedside today. Denies any new complaints today. 10/06/24: Patient evaluated at bedside. Patient underwent cardiac cath yesterday. 10/07/24: Patient seen and examined at bedside today. He reports shortness of breath and is on 3L of oxygen via nasal cannula. Review of systems: Pertinent positives and negatives as discussed in HPI, a complete review of sy stems was performed and all other systems are negative. Vitals: Signs Reviewed, SpO2 89% on 3 L oxygen via nasal cannula with activity Physical examination: General: nontoxic, no distress, appears at stated age, on 2L oxygen via nasal cannula Derm: warm, dry, intact Head: atraumatic, normocephalic, symmetric Eyes: EOMI, anicteric sclera Mouth: no lip lesion, mucus membranes moist Cardiovascular: S1 S2 reg, no murmur Lungs: wheezing b/l, no rhonchi, no rales Abdominal: soft, non-tender to palpation Extremities: No cyanosis, clubbing, or pedal edema. Neuro: Alert, Oriented, Gross neurological examination did not reveal any focal deficits. Psych: well appearing, appropriate affect Data Reviewed Today: Labs: BBC 14.29, hemoglobin 9.1, MCV 74.9, Na 136, glucose 147 Microbio: Blood culture shows no growth 48 hours Imaging: Chest CTA shows no evidence of pulmonary embolism, marked interstitial density in the lower lobes consistent with interstitial fibrosis,, mild splenomegaly Assessment/Plan: Patient is a 79 year old male with past medical history of COPD, hypertension, hyperlipidemia presented to the ED with shortness of breath. Patient initially went to the hospital in [place] for fever and shortness of breath and chest pressure. Patient underwent cardiac cath that showed noncritical CAD with some diastolic dysfunction. Active: #. Acute hypoxic respiratory failure #. Interstitial lung disease #. COPD exacerbation #. Leukocytosis Chest x-ray shows clinical consideration for volume overload Legionella antigen is negative Blood culture shows no growth 24 hours Chest CTA shows no evidence of pulmonary embolism, marked interstitial density in the lower lobes consistent with interstitial fibrosis,, mild splenomegaly Received Azithromycin 500 mg in the ED Continue supplemental oxygen as needed, wean FiO2 to maintain SpO2 >88 Continue Pulmicort and Perforomist inhalation, DuoNebs, albuterol 2.5 mg 4 times daily as needed Prednisone discontinued Continue Solu-Medrol 60 mg IV every 6 hours Pending sputum culture Pulmonology is following #. Type I NSTEMI #. Pulmonary edema #. S/p cardiac catheterization on 10/05/2024 #. Noncritical CAD with some diastolic dysfunction EKG independently interpreted as sinus rhythm, rate 84 bpm, QTc 414 ms Chest x-ray shows clinical consideration for volume overload Troponin I 0.208, 0.196, 0.138 NT proBNP 1957 Echocardiogram shows EF 50-55%, left ventricular systolic function borderline normal with no segmental wall motion abnormality, mild to moderate mitral with mild tricuspid regurgitation and mild pulmonary hypertension A1c 6.6, triglycerides 64.9, cholesterol 113, LDL 47.7, VLDL 20.98, HDL 52.3, TSH 0.046, free T41.68 Cardiac catheterization on 10/05/24 showed elevated filling pressures with no gradient, right dominant system, minor irregularities, no significant obstructive CAD Continue aspirin 81 mg p.o. daily, atorvastatin 40 mg p.o. daily, metoprolol 5 mg p.o. daily, Lasix 20 mg p.o. daily, lisinopril 20 g p.o. daily, Aldactone 25 mg p.o. daily Continue nitroglycerin 0.4 mg sublingual every 4 hours as needed Continue telemetry monitoring Cardiology signed off #. Iron deficiency anemia Reticulocyte count 0.87, corrected reticulocyte count 0.66-insufficient Iron 13, TIBC 375, percent saturation 3.47, transferrin 268, ferritin 57 Continue IV iron 125 mg daily Transfuse for Hb<7 Monitor CBC #. Mild Hyponatremia Monitor BMP #. D-dimer elevation D-dimer 1.4 Low risk for PE Chest CTA shows no evidence of pulmonary embolism, marked interstitial density in the lower lobes consistent with interstitial fibrosis,, mild splenomegaly Monitor vital signs #. Sick euthyroid TSH 0.046, free T41.68 Repeat labs in 4 to 6 weeks on outpatient basis #. HAGMA with NAGMA, resolved Chronic: #. Hypertension #. Hyperlipidemia #. GERD #. Restless leg syndrome #. BPH Continue atorvastatin 40 mg p.o. daily, pantoprazole 40 mg p.o. daily, pramipexole 0.25 mg p.o. at bedtime, Tamsulosin 0.4 mg pO daily Lisinopril 20 mg PO BID F: None E: Replete as required N: Heart healthy diet none A: Ambulatory DVT prophylaxis: Lovenox 40 mg SQ daily GI prophylaxis: Protonix 40 mg Code status: Full code Anticipated discharge place: Pending clinical course Anticipated discharge time: Pending clinical course Dictation was produced using [employer] dictation software. please excuse any grammatical, word or spelling errors. Miranda Damian MD PGY-1 IM I have seen and evaluated the patient today. Discussed with the resident and agree with the residents finding and plan as documented in the resident's note. Changes highlighted in blue font. Objective - Vital Signs Vital signs: Vital Signs Temp 97.6 F 10/06/24 19:30 Pulse 82 10/07/24 06:11 Resp 22 10/07/24 04:00 BP 152/73 10/07/24 04:00 Pulse Ox 89 L 10/07/24 04:00 FiO2 Intake & Output 10/06/24 10/07/24 10/07/24 18:59 06:59 18:59 Intake Total 1078 540 Output Total 400 Balance 1078 140 Weight 125.1 kg Intake: Oral 1078 540 Output: Urine 400 Other: Voiding Method Toilet Urinal # Voids 1 1 - Labs CBC & Chem 7: 10/07/24 06:19 10/07/24 06:19 Labs: Abnormal Lab Results - Last 24 Hours (Table) 10/06/24 10/06/24 10/06/24 Range/Units 06:27 06:27 11:37 WBC 12.08 H (4.50-10.00) 10*3/uL RBC 3.99 L (4.40-5.60) 10*6/uL Hgb 9.3 L (13.0-17.0) g/dL Hct 30.5 L (39.6-50.0) % MCV 76.4 L (80.0-97.0) fL MCH 23.3 L (27.0-32.0) pg MCHC 30.5 L (32.0-37.0) g/dL Chloride 108 H (98-107) mmol/L BUN 27 H (9-20) mg/dL Glucose 167 H (74-99) mg/dL POC Glucose (mg/dL) 199 H (70-110) mg/dL 10/06/24 10/06/24 10/07/24 Range/Units 16:33 19:57 06:01 WBC (4.50-10.00) 10*3/uL RBC (4.40-5.60) 10*6/uL Hgb (13.0-17.0) g/dL Hct (39.6-50.0) % MCV (80.0-97.0) fL MCH (27.0-32.0) pg MCHC (32.0-37.0) g/dL Chloride (98-107) mmol/L BUN (9-20) mg/dL Glucose (74-99) mg/dL POC Glucose (mg/dL) 145 H 162 H 159 H (70-110) mg/dL 10/07/24 Range/Units 06:19 WBC 14.29 H (4.50-10.00) 10*3/uL RBC 3.87 L (4.40-5.60) 10*6/uL Hgb 9.1 L (13.0-17.0) g/dL Hct 29.0 L (39.6-50.0) % MCV 74.9 L (80.0-97.0) fL MCH 23.5 L (27.0-32.0) pg MCHC 31.4 L (32.0-37.0) g/dL Chloride (98-107) mmol/L BUN (9-20) mg/dL Glucose (74-99) mg/dL POC Glucose (mg/dL) (70-110) mg/dL Microbiology - Last 24 Hours (Table) 10/04/24 10:37 Blood Culture - Preliminary Blood
[2024-10-07 11:40] LABS: Glucose,Whole Blood 167 mg/dL (70-110)
[2024-10-07 11:41] VITALS: BP 144/82
--- NOTE | 2024-10-07 13:44 | P.DS ---
Providers Date of admission: 10/04/24 06:05 Expected date of discharge: 10/07/24 Attending physician: Juan Daniel Trent MD Consults: 10/05/24 13:03 Consult Physician Routine Consulting Provider: Collin Kay Consult Reason/Comments: copd exacerbation Do you want consulting provider notified?: Yes Primary care physician: NELIDA Delaney Hospital Course: Discharge diagnosis: Acute hypoxic respiratory failure Interstitial lung disease COPD exacerbation Leukocytosis Type I NSTEMI Pulmonary edema S/p cardiac catheterization on 10/05/2024 Noncritical CAD with some diastolic dysfunction Iron deficiency anemia Mild Hyponatremia D-dimer elevation Sick euthyroid HAGMA with NAGMA, resolved Hypertension Hyperlipidemia GERD Restless leg syndrome BPH Hospital Course: Patient is a 79 year old male with past medical history of COPD, hypertension, hyperlipidemia presented to the ED with shortness of breath. Patient initially w ent to the hospital in [place] for fever and shortness of breath. Respiratory panel was negative. His troponin was high which is why he was sent to the ED here at [facility]. Patient mentioned that he recently moved here from [place] in August 2024. [facility]. Initial evaluation in the ED showed vitals T 98.3 F, W[place] 86 bpm, RR 20, BP 110/59, SpO2 96% on 4 L oxygen via nasal cannula. EKG independently interpreted as sinus rhythm, rate 84 bpm, QTc 414 ms. Chest x-ray shows clinical consideration for volume overload. Echocardiogram 10/04/24 shows EF 50-55 percent, left ventricular systolic function borderline normal with no segmental wall motion abnormality, mild to moderate mitral with mild tricuspid regurgitation and mild pulmonary hypertension. Troponin I 0.208, 0.196, 0.138 .NT proBNP 196. At that point patient was started on heparin drip, aspirin, atorvastatin. Further work up showed A1c 6.6, triglycerides 64.9, cholesterol 113, LDL 47.7, VLDL 20.98, HDL 52.3, TSH 0.046, free T41.68 . He then underwent cardiac catheterization on 10/05/24 showed elevated filling pressures with no gradient, right dominant system, minor irregularities, no significant obstructive CAD. Heparin drip was discontinued. Ticket Taker recommended aggressive medical therapy with addition of Aldactone, small dose of Lasix, statins, beta-rema, lisinopril. He then felt short of breath and his oxygen requirement was increasing. Pulmonology was consulted who obtained chest CTA that showed no evidence of pulmonary embolism, marked interstitial density in the lower lobes consistent with interstitial fibrosis, mild splenomegaly. Patient was treated with Pulmicort, Performist, Duonebs, and Solumedrol. Patient has been optimized for discharge. Patient seen at bedside today and is feeling good and excited about discharge. Patient will be discharged today and is given a script for Aldactone, lisinopril, ferrous sulfate, Senokot, Lasix, metoprolol, prednisone taper. Patient is given a handout for heart attack, pulmonary fibrosis, iron deficiency anemia, heart catheterization and is advised to be compliant with medications. Patient is advised to follow-up with PCP in 1-2 days, food equipment service technician, circulation librarian. Vital signs are reviewed and stable General: nontoxic, no distress, appears at stated age, on 2L oxygen via nasal cannula Derm: warm, dry, intact Head: atraumatic, normocephalic, symmetric Eyes: EOMI, anicteric sclera Mouth: no lip lesion, mucus membranes moist Cardiovascular: S1 S2 reg, no murmur Lungs: wheezing b/l, no rhonchi, no rales Abdominal: soft, non-tender to palpation Extremities: No cyanosis, clubbing, or pedal edema. Neuro: Alert, Oriented, Gross neurological examination did not reveal any focal deficits. Psych: well appearing, appropriate affect A total of 30 minutes of time were spent preparing this complex discharge summary. Patient was discharged on 10/07/24 at 1319. Dictation was produced using [employer] dictation software. please excuse any grammatical, word or spelling error Miranda Damian MD PGY-1 IM I have seen and evaluated the patient today. Discussed with the resident and agree with the residents finding and plan as documented in the resident's note. Changes highlighted in blue font. Patient Condition at Discharge: Stable Plan - Discharge Summary Discharge Rx Participant: No New Discharge Prescriptions: New Spironolactone [Aldactone] 25 mg PO DAILY 30 Days #30 tab lisinopriL [Zestril] 20 mg PO BID 30 Days #60 tab Ferrous Sulfate [Feosol] 325 mg PO BID 30 Days #60 tab Sennosides [Senokot] 8.6 mg PO DAILY PRN #30 tablet PRN Reason: Constipation Furosemide [Lasix] 20 mg PO DAILY 30 Days #30 tab Metoprolol Tartrate [Lopressor] 25 mg PO DAILY 30 Days #30 tab predniSONE 10 mg PO DAILY 16 Days #40 tab Continue Omeprazole 40 mg PO DAILY Lovastatin [Mevacor] 20 mg PO HS Albuterol Sulfate [Albuterol Sulfate Hfa] 2 puff PO RT-QID PRN PRN Reason: Shortness Of Breath Aspirin 81 mg PO DAILY Ibuprofen [Motrin] 600 mg PO TID Umeclidinium Brm/Vilanterol Tr [Anoro Ellipta 62.5-25 Mcg INH] 1 puff INHALATION RT-DAILY Tamsulosin HCl [Flomax] 0.4 mg PO BID Cholecalciferol [Vitamin D3 (25 Mcg = 1000 Iu)] 25 mcg PO HS Meloxicam [Mobic] 15 mg PO DAILY Famotidine [Pepcid] 40 mg PO HS Pramipexole [Mirapex] 0.25 mg PO HS Clotrimazole/Betameth Cream [Lotrisone] 1 applic TOPICAL BID Discontinued lisinopriL [Lisinopril] 40 mg PO DAILY Chlorhexidine Gluconate [Peridex] 15 ml PO BID amLODIPine [Norvasc] 5 mg PO HS Discharge Medication List Lovastatin [Mevacor] 20 mg PO HS 04/01/16 [History] Omeprazole 40 mg PO DAILY 04/01/16 [History] Albuterol Sulfate [Albuterol Sulfate Hfa] 2 puff PO RT-QID PRN 10/04/24 [History] Aspirin 81 mg PO DAILY 10/04/24 [History] Cholecalciferol [Vitamin D3 (25 Mcg = 1000 Iu)] 25 mcg PO HS 10/04/24 [History] Clotrimazole/Betameth Cream [Lotrisone] 1 applic TOPICAL BID 10/04/24 [History] Famotidine [Pepcid] 40 mg PO HS 10/04/24 [History] Ibuprofen [Motrin] 600 mg PO TID 10/04/24 [History] Meloxicam [Mobic] 15 mg PO DAILY 10/04/24 [History] Pramipexole [Mirapex] 0.25 mg PO HS 10/04/24 [History] Tamsulosin HCl [Flomax] 0.4 mg PO BID 10/04/24 [History] Umeclidinium Brm/Vilanterol Tr [Anoro Ellipta 62.5-25 Mcg INH] 1 puff INHALATION RT-DAILY 10/04/24 [History] Ferrous Sulfate [Feosol] 325 mg PO BID 30 Days #60 tab 10/07/24 [Rx] Furosemide [Lasix] 20 mg PO DAILY 30 Days #30 tab 10/07/24 [Rx] Metoprolol Tartrate [Lopressor] 25 mg PO DAILY 30 Days #30 tab 10/07/24 [Rx] Sennosides [Senokot] 8.6 mg PO DAILY PRN #30 tablet 10/07/24 [Rx] Spironolactone [Aldactone] 25 mg PO DAILY 30 Days #30 tab 10/07/24 [Rx] lisinopriL [Zestril] 20 mg PO BID 30 Days #60 tab 10/07/24 [Rx] predniSONE 10 mg PO DAILY 16 Days #40 tab 10/07/24 [Rx] Follow up Appointment(s)/Referral(s): Collin Kay MD [STAFF PHYSICIAN] - 1 Week Zachary Winston DO [STAFF PHYSICIAN] - 1 Week [place] [NON-STAFF] - [facility], [NON-STAFF] - Mishel Jovel PAC [Primary Care Provider] - 1-2 days Patient Instructions/Handouts: Heart Attack (GEN), Pulmonary Fibrosis (GEN), Iron Deficiency Anemia (GEN), Heart Catheterization (GEN) Activity/Diet/Wound Care/Special Instructions: Patient to follow up with PCP, food equipment service technician, and circulation librarian. Repeat TSH and Free T4 in 4 to 6 weeks on outpatient basis with PCP. Discharge Disposition: HOME SELF-CARE
--- NOTE | 2024-10-07 14:33 | P.PN ---
Subjective Progress Note Date: 10/07/24 Principal diagnosis: Acute non-ST elevation myocardial infarction COPD and interstitial lung disease This is a 79-year-old male patient with a known history of chronic obstructive pulmonary disease, former smoker, hypertension, hyperlipidemia who presented to [facility] with complaints of shortness of breath, cough congestion and chest pressure. He was transferred as a NSTEMI. He did undergo cardiac catheterization here today that revealed no significant cannot obstructive coronary artery disease and was to be treated medically. He continued to have issues with shortness of breath and wheezing and we are consulted today for the same. Chest x-ray revealed mild fluid volume overload. Echocardiogram revealed preserved left ventricular systolic function with an ejection fraction of 50 to 55%. White count 15.9. Hemoglobin 9.5. Platelets 230. Sodium 135. Potassium 4.2. Bicarb 24. BUN 30. Creatinine 0.96. Glucose 142. Troponin 0.20, 0.19, 0.13. proBNP 1960. He is seen today on the selective care unit. He is resting in bed. Awake and alert in no acute distress. He is dyspneic with minimal conversation. Dyspneic with minimal exertion. He states he did see a clinical cytogeneticist scientist in [place] this year and had a CT scan done of the chest that rev ealed no evidence of pulmonary nodules. There was evidence of COPD/emphysema. He is maintained on Trelegy and albuterol in the outpatient setting. Currently maintaining O2 saturations in the 90s on 2 L/min per nasal cannula. Afebrile. Hemodynamically stable. The patient is seen today October 06, 2024 in follow-up on the selective care unit. He is currently sitting up at the bedside. Awake and alert in no acute distress. Maintaining O2 saturations in the 90s on 3 L/min per nasal cannula. He has been afebrile. Hemodynamically stable. White count 12.0. Hemoglobin 9.3. Platelets 267. Sodium 140. Potassium 4.3. Bicarb 22. BUN 27. Creatinine 0.82. Glucose 165. He remains on DuoNeb inhalations, Pulmicort and Perforomist inhalations, Solu-Medrol. Remains on oral diuretics. Patient was seen today on 10/07/2024, seen for follow-up on his abnormal CT of the chest and his pulmonary symptoms reviewed the CT of the chest with the patient today and explained to him that he does have significant interstitial lung disease/pulmonary fibrosis possibly IPF. Patient is maintained on oxygen, he has shortness of breath with any activity, no evidence of pulmonary embolism but there is evidence of interstitial lung disease/pulmonary fibrosis. Patient will be discharged likely today on home O2, prednisone burst and taper, and on bronchodilators. He has nebulizer machine at home, and he is also on Trelegy at home. Patient will need outpatient follow-up and outpatient PFT Objective - Vital Signs Vital signs: Vital Signs Temp 97.6 F 10/07/24 08:07 Pulse 72 10/07/24 11:41 Resp 22 10/07/24 14:00 BP 144/82 10/07/24 11:41 Pulse Ox 94 L 10/07/24 11:41 FiO2 Intake & Output 10/06/24 10/07/24 10/07/24 18:59 06:59 18:59 Intake Total 1078 540 480 Output Total 400 400 Balance 1078 140 80 Weight 125.1 kg Intake: Oral 1078 540 480 Output: Urine 400 400 Other: Voiding Method Toilet Toilet Urinal Urinal # Voids 1 1 1 - Exam GENERAL EXAM: 79-year-old white male in no distress on 2 L nasal cannula HEAD: Normocephalic. EYES: Normal reaction of pupils, equal size. NOSE: Clear with pink turbinates. THROAT: No erythema or exudates. NECK: No masses, no JVD. CHEST: No chest wall deformity. LUNGS: Diminished breath sound bilateral, could not appreciate Velcro rales or crackles at the bases CVS: S1 and S2 normal with no audible murmur, regular rhythm. ABDOMEN: No hepatosplenomegaly, normal bowel sounds, no guarding or rigidity. SKIN: No rashes CENTRAL NERVOUS SYSTEM: Alert oriented x 3 no gross focal deficit EXTREMITIES: No clubbing edema or cyanosis - Labs CBC & Chem 7: 10/07/24 06:19 10/07/24 06:19 Labs: Abnormal Lab Results - Last 24 Hours (Table) 10/06/24 10/06/24 10/07/24 Range/Units 16:33 19:57 06:01 WBC (4.50-10.00) 10*3/uL RBC (4.40-5.60) 10*6/uL Hgb (13.0-17.0) g/dL Hct (39.6-50.0) % MCV (80.0-97.0) fL MCH (27.0-32.0) pg MCHC (32.0-37.0) g/dL Sodium (137-145) mmol/L BUN (9-20) mg/dL Glucose (74-99) mg/dL POC Glucose (mg/dL) 145 H 162 H 159 H (70-110) mg/dL 10/07/24 10/07/24 10/07/24 Range/Units 06:19 06:19 11:38 WBC 14.29 H (4.50-10.00) 10*3/uL RBC 3.87 L (4.40-5.60) 10*6/uL Hgb 9.1 L (13.0-17.0) g/dL Hct 29.0 L (39.6-50.0) % MCV 74.9 L (80.0-97.0) fL MCH 23.5 L (27.0-32.0) pg MCHC 31.4 L (32.0-37.0) g/dL Sodium 136 L (137-145) mmol/L BUN 23 H (9-20) mg/dL Glucose 147 H (74-99) mg/dL POC Glucose (mg/dL) 167 H (70-110) mg/dL Microbiology - Last 24 Hours (Table) 10/04/24 10:37 Blood Culture - Preliminary Blood Assessment and Plan Assessment: Impression: Suspect interstitial lung disease/pulmonary fibrosis/IPF Non-ST segment elevation myocardial infarction with chest pressure in a patient found to have no significant obstructive coronary artery disease via heart catheterization today Acute exacerbation of chronic obstructive pulmonary disease Acute hypoxic respiratory failure secondary to above Former smoker Hypertension Hyperlipidemia Gastroesophageal reflux disease Benign prostatic hyperplasia Recommendation: Continue bronchodilators Home O2 Prednisone taper on outpatient basis Needs outpatient follow-up in my office in 2 weeks PFT on outpatient basis Will clear for discharge if cleared by other consultants on home O2 Time with Patient: Less than 30
[2024-10-07 15:33] VITALS: PULSE 80
[2024-10-08] MEDS ORDERED: ENOXAPARIN 40 MG/0.4 ML SYRINGE SQ SCH (09:00)
--- NOTE | 2024-10-11 08:09 | CDI ---
Documentation Clarification Form Date: 10/11/24 From: Joleen Ordoñez Admit Date: 10/04/2024 06:05:00 AM Patient Name: Michael Del Valle Visit Number: [id number] Discharge Date: 10/07/2024 03:58:00 PM ATTENTION: The Clinical Documentation Specialists (CDI) and [facility] Coding Staff appreciate your assistance in clarifying documentation. Please respond to the clarification below the line at the bottom and electronically sign. The CDI & [facility] Coding staff will review the response and follow-up if needed. Please note: Queries are made part of the Legal Health Record. If you have any questions, please contact the author of this message via ITS. Doctor/Provider: Mike Alexander, Your patient has pulmonary edema per H&P, subsequent progress notes and the discharge summary. CT findings of markedhoneycomb lungin the right upper lobe, right middle lobe and bilateral lower lobes. There are smallbilateral pleural effusions. Documentation of fluid overload per 10/05 cnsult. Based on this information and the findings below, is there an additional diagnosis that is clinically appropriate for this patient? Patient history/risk factors: HTN, Type 1 NSTEMI, acute hypoxic respiratory failure, acute exacerbation of COPD & emphysema, morbid obesity w BMI of 42 Clinical Indicators: Shortness of breath and CXR showed volume overload. BNP: 1690 Cardiac ECHO: Left ventricular ejection fraction is estimated at 50-55 %, left ventricular systolic function borderline normalwith nosegmental wall motionabnormality, mild to moderate. Heart Cath: NoncriticalCADsome diastolicdysfunction Treatment: IV Lasix 40 mg and IV Lasix 20 mg 10/06 New discharge meds: Aldactone, Zestril, Lasix 20 mg PO, Loressor, Prednisone, Duoneb Is there an additional diagnosis that is clinically appropriate for this patient? [ ] Chronic Pulmonary Edema [ ] Acute Pulmonary Edema [ ] Acute Pulmonary Edema related to CHF (specify type) and (acuity): [x ] No additional diagnosis/Not clinically significant [ ] Unable to determine [ ] Other, please specify MTDD
== END 2024-10-07 15:58 | disposition home health service (06) | DRG 280 ==
LOC: EC 04:15 → 3SCARD 06:04 → OBSVTOIN 06:05 → 3SCARD 14:06
PROVIDERS: ADMIT Internal Medicine; ATTEND Internal Medicine
PROC: 4A023N7 Measurement of Cardiac Sampling and Pressure, Left Heart, Percutaneous Approach (ICD-10-PCS; principal; 2024-10-05 12:00)
PROC: B2111ZZ Fluoroscopy of Multiple Coronary Arteries using Low Osmolar Contrast (ICD-10-PCS; principal; 2024-10-05 12:00)
DX: I21.4 Non-ST elevation (NSTEMI) myocardial infarction (principal); J96.01 Acute respiratory failure with hypoxia; E87.20 Acidosis, unspecified; E87.1 Hypo-osmolality and hyponatremia; J44.1 Chronic obstructive pulmonary disease with (acute) exacerbation; G20.A1 Parkinson's disease without dyskinesia, without mention of fluctuations; E66.01 Morbid (severe) obesity due to excess calories; I34.0 Nonrheumatic mitral (valve) insufficiency; D50.9 Iron deficiency anemia, unspecified; I10 Essential (primary) hypertension; J84.9 Interstitial pulmonary disease, unspecified; Z68.41 Body mass index [BMI] 40.0-44.9, adult; J43.9 Emphysema, unspecified; E87.70 Fluid overload, unspecified; I25.10 Atherosclerotic heart disease of native coronary artery without angina pectoris; K21.9 Gastro-esophageal reflux disease without esophagitis; G25.81 Restless legs syndrome; N40.0 Benign prostatic hyperplasia without lower urinary tract symptoms; E78.5 Hyperlipidemia, unspecified; D72.829 Elevated white blood cell count, unspecified; E07.81 Sick-euthyroid syndrome; Z79.82 Long term (current) use of aspirin; Z79.1 Long term (current) use of non-steroidal anti-inflammatories (NSAID); Z79.899 Other long term (current) drug therapy; Z87.891 Personal history of nicotine dependence; Z88.5 Allergy status to narcotic agent
CPT/HCPCS: 36415; 71046; 71275; 80048; 80053; 80061; 82728; 83036; 83540; 83550; 83605; 83880; 84439; 84443; 84466; 84484; 85025; 85027; 85045; 85379; 85610; 85730; 87040; 87449; 93005; 93306; 93458; 94640; 94760; 96365; 96366; 96368; 96375; 99291